=== PATIENT | female | born 1955 | race Caucasian/White ===

== ENCOUNTER → 2017-04-09 | Day surgery (SDC) | payer OTHER ==
[~2017-04-09] MED LIST: 'PARAFON FORTE500 M1 PO; ACETAMINOPHEN-H1 TA2 PO; AMLODIPINE5 MG PO; AMOXICILLIN500 MG PO; ATENOLOL25 MG PO; AUGMENTIN 875 M1 TAB PO; CARDIZEM60 MG PO; CLARITIN10 MG PO; COUMADIN4 M1 PO; Coumadin2 MG PO; DAYPRO600 M1 PO; DIGITEK0.25 MG PO; DILTIAZEM30 MG PO; DILTIAZEM60 MG PO; DUONEB 3 MG/3 ML3 M1 NEB; FLEXERIL5 MG PO; FLUCONAZOLE100 MG PO; HYDROCHLOROTHIA25 MG PO; HYDROCODONE BIT1 T11 PO; K-TAB20 MEQ PO; LANOXIN0.25 MG PO; LASIX20 MG PO; LASIX40 MG PO; LEVOFLOXACIN500 MG PO; LISINOPRIL20 MG PO; MACROBID100 M1 PO; MEDROL DOSEPAK4 MG PO; METFORMIN1000 MG PO; METFORMIN500 MG PO; METOPROLOL TART50 M1 PO; MOTRIN800 MG PO; NEURONTIN300 MG PO; NICOTINE T21 MG/24 H T; NORCO 5-325 TA1 EACH PO; POTASSIUM CHLO10 ME4 PO; PRADAXA150 MG PO; PREDNICOT10 MG PO; PREDNICOT20 MG PO; PREDNISONE10 MG PO; PREDNISONE50 MG PO; PROTONIX40 MG PO; PROVENTIL0.09 MG/AC IH; ROBITUSSIN AC 110 ML PO; ROBITUSSIN DM 105 ML PO; SOTALOL HCL80 MG PO; SYMBICORT1 AE1 INH; TESSALON PERLE200 MG PO; TOBREX OPHTH S2.5 ML OPH; VALIUM10 MG PO; VIBRAMYCIN100 MG PO; VICODIN 5/500 505 MG PO; VICODIN 500 MG-1 TAB PO; ZITHROMAX Z PA250 MG PO
--- NOTE | ~2017-04-09 | PROC NOTE ---
[place], [place] PROCEDURE NOTE NAME: ISAURA LOPEZ [facility] #: [id number] UNIT #: [id number] ROOM: DOCTOR: HERMANN MCLAUGHLIN MD BIRTHDATE: [birth year] DOS: 04/09/2017 PREOPERATIVE DIAGNOSIS: Right occipital scalp soft tissue mass. POSTOPERATIVE DIAGNOSIS: Right parieto-occipital scalp sebaceous cyst/epidermal inclusion cyst. PROCEDURE: Excision of right parieto-occipital scalp epidermal inclusion cyst. SURGEON: Hermann Mclaughlin MD. TRADITIONAL [facility] PRACTITIONER: MS4. ANESTHESIA: Local (1% with epinephrine). INDICATIONS: This is a 61-year-old lady with an increasing mass on the scalp in the right parieto-occipital region, who comes in today for the above-mentioned procedure. The procedure and its complications were explained to the patient in detail preoperatively. Complications that were discussed included, but were not limited to, bleeding, infection, abscess formation, hematoma formation, and prolonged pain. She agreed to proceed. DESCRIPTION OF PROCEDURE: After identifying the patient, the patient was brought to the operating suite and laid in the left lateral position. After the parts were painted and draped in the usual sterile fashion, a time-out procedure was called. An incision was marked in an elliptical fashion, and local anesthesia was infiltrated. An incision was made over the marked site, and the cyst was excised in its entirety with the help of blunt and sharp dissection, and it was sent for histopathological diagnosis. Thereafter, hemostasis was confirmed with the help of electrocautery, and the subcutaneous tissue was approximated with the help of 3-0 Vicryl in a running fashion and the skin edges were approximated with the help of a 4-0 Vicryl in a subcuticular running fashion and dressing was placed. The patient tolerated the procedure well and was taken to the recovery room in stable fashion. Dr. Hermann Mclaughlin, the attending surgeon, was present throughout the operating case. Hermann Mclaughlin MD CM:PROCNOTE:PROCEDURE NOTE [id number] HERMANN MCLAUGHLIN MD
[2017-04-09 07:08] VITALS: BP 140/76
[2017-04-09 07:24] VITALS: BP 135/78
[2017-04-09 07:42] VITALS: BP 155/88
[2017-04-09 07:50] VITALS: BP 159/91
[2017-04-09 08:00] VITALS: BP 151/90
== END | disposition home or self-care (01) ==
LOC: SDC 04-06 09:30
DX: L72.0 Epidermal cyst (principal); E11.9 Type 2 diabetes mellitus without complications; I48.91 Unspecified atrial fibrillation; B19.20 Unspecified viral hepatitis C without hepatic coma; I10 Essential (primary) hypertension; J44.9 Chronic obstructive pulmonary disease, unspecified; F17.210 Nicotine dependence, cigarettes, uncomplicated; Z98.890 Other specified postprocedural states

== ENCOUNTER → 2017-05-06 | Outpatient (CLI) | payer OTHER | END | disposition home or self-care (01) | LOC: US 05-05 11:00 | DX: I73.9 Peripheral vascular disease, unspecified (principal); L97.321 Non-pressure chronic ulcer of left ankle limited to breakdown of skin; I49.8 Other specified cardiac arrhythmias ==

== ENCOUNTER → 2017-05-20 | Outpatient (CLI) | payer OTHER | END | disposition home or self-care (01) | LOC: MRI 09:41 | DX: M47.816 Spondylosis without myelopathy or radiculopathy, lumbar region (principal); M48.06 Spinal stenosis, lumbar region; M48.56XD Collapsed vertebra, not elsewhere classified, lumbar region, subsequent encounter for fracture with routine healing; Z98.890 Other specified postprocedural states ==

== ENCOUNTER 2017-07-22 15:18 | Inpatient (IN) | payer OTHER ==
[~2017-07-22] VITALS: Ht 170.2 cm; Wt 86.7 kg
[~2017-07-22 15:18] MED LIST changes: -NATURE'S BLEND F1 MG PO; -Oscal,Oyster S500 MG PO; -ULTRAM50 MG PO; -Vitamin D PO
[2017-07-22 15:32] VITALS: BP 122/99
[2017-07-22 16:31] LABS: BUN 9 mg/dl (7-24); CHLORIDE 98 mmol/L (98-107); POTASSIUM 3.5 mmol/L (3.5-5.1); SODIUM 138 mmol/L (136-145)
[2017-07-22 16:36] LABS: ACT PARTIAL THROMBO TIME 37.2 SECONDS (20.8-31.5); INTERNATIONAL NORM RATIO 1.4 (2.0-3.5)
[2017-07-22 16:37] LABS: MAGNESIUM 0.9 mg/dL (1.5-2.1)
[2017-07-22 16:51] LABS: DIGOXIN 1.69 ng/ml (0.8-2.0)
[2017-07-22 18:00] VITALS: BP 142/78
[2017-07-22 20:00] VITALS: BP 122/80
[2017-07-22 20:21] LABS: ALBUMIN 2.5 gm/dl (3.1-4.5); ALKALINE PHOSPHATASE 216 U/L (45-117); BUN 8 mg/dl (7-24); CHLORIDE 96 mmol/L (98-107); CREATININE 1.17 mg/dL (0.55-1.02); MAGNESIUM 1.4 mg/dL (1.5-2.1); PHOSPHOROUS 3.5 mg/dL (2.5-4.9); POTASSIUM 3.3 mmol/L (3.5-5.1); SGOT/AST 54 IU/L (3-35); SGPT/ALT 25 U/L (12-78); SODIUM 139 mmol/L (136-145); TOTAL PROTEIN 7.1 gm/dL (6.4-8.2)
[2017-07-22 20:26] LABS: TROPONIN I < 0.015 ng/ml (<0.045)
[2017-07-22 21:08] LABS: VITAMIN D, 25-HYDROXY 9.1 ng/mL (30-100)
[2017-07-23] VITALS: BP 111/56
[2017-07-23 06:23] LABS: BASO # 0.1 10*3/uL (0.0-0.1); BASO % 0.8 % (0.0-1.0); EOS # 0.2 10*3/uL (0.0-0.4); EOS % 2.6 % (1.0-4.0); HEMATOCRIT 32.6 % (37.0-47.0); HEMOGLOBIN 11.2 g/dl (12.0-16.0); LYMPH % 12.8 % (27.0-41.0); MEAN CELL VOLUME 106.5 fl (81.0-99.0); MEAN CORPUSCULAR HGB 36.6 pg (27.0-31.0); MEAN CORPUSCULAR HGB CONC 34.4 g/dl (33.0-37.0); MEAN PLATELET VOLUME 9.6 fl (9.6-12.3); MONO # 0.6 10*3/uL (0.1-1.0); MONO % 8.6 % (3.0-9.0); NEUT # 5.5 10*3/uL (2.3-7.9); NEUT % 74.8 % (47.0-73.0); PLATELET COUNT AUTOMATED 195 10*3/uL (130-400); RED BLOOD COUNT 3.06 10*6/uL (4.10-5.10); RED CELL DISTRI WIDTH 15.6 % (0-14.5); WHITE BLOOD COUNT 7.4 10*3/uL (4.8-10.8)
[2017-07-23 06:37] LABS: INTERNATIONAL NORM RATIO 1.3 (2.0-3.5)
[2017-07-23 06:41] LABS: ALBUMIN 2.3 gm/dl (3.1-4.5); BUN 10 mg/dl (7-24); CHLORIDE 98 mmol/L (98-107); MAGNESIUM 1.4 mg/dL (1.5-2.1); POTASSIUM 3.5 mmol/L (3.5-5.1); SODIUM 140 mmol/L (136-145)
[2017-07-23 06:45] LABS: ALKALINE PHOSPHATASE 194 U/L (45-117); CREATININE 1.02 mg/dL (0.55-1.02); PHOSPHOROUS 3.1 mg/dL (2.5-4.9); SGOT/AST 52 IU/L (3-35); SGPT/ALT 21 U/L (12-78); TOTAL PROTEIN 6.6 gm/dL (6.4-8.2)
[2017-07-23 08:00] VITALS: BP 102/50
[2017-07-23 12:00] VITALS: BP 115/77
[2017-07-23] MEDS ORDERED: Vitamin D PO (13:48)
[2017-07-23] MEDS ORDERED: ULTRAM50 MG PO (13:48)
[2017-07-23] MEDS ORDERED: NATURE'S BLEND F1 MG PO (13:48)
[2017-07-23] MEDS ORDERED: Oscal,Oyster S500 MG PO (13:48)
== END 2017-07-23 15:15 | disposition home or self-care (01) | DRG 640 ==
LOC: ED 15:18 → EDHOLD 16:54 → 5E 16:54
PROVIDERS: Emergency Medicine; Internal Medicine Hospice and Palliative Medicine; ADMIT Internal Medicine
DX: E83.51 Hypocalcemia (principal); E43 Unspecified severe protein-calorie malnutrition; E11.42 Type 2 diabetes mellitus with diabetic polyneuropathy; I50.22 Chronic systolic (congestive) heart failure; I11.0 Hypertensive heart disease with heart failure; I48.2 Chronic atrial fibrillation; E83.42 Hypomagnesemia; E11.65 Type 2 diabetes mellitus with hyperglycemia; J44.9 Chronic obstructive pulmonary disease, unspecified; K70.30 Alcoholic cirrhosis of liver without ascites; E80.6 Other disorders of bilirubin metabolism; D75.89 Other specified diseases of blood and blood-forming organs; F10.120 Alcohol abuse with intoxication, uncomplicated; K21.9 Gastro-esophageal reflux disease without esophagitis; B19.20 Unspecified viral hepatitis C without hepatic coma; R74.0 Nonspecific elevation of levels of transaminase and lactic acid dehydrogenase [LDH]; D72.810 Lymphocytopenia; F17.210 Nicotine dependence, cigarettes, uncomplicated; E66.9 Obesity, unspecified; Z68.29 Body mass index [BMI] 29.0-29.9, adult; Z71.6 Tobacco abuse counseling; Z71.41 Alcohol abuse counseling and surveillance of alcoholic; Z79.84 Long term (current) use of oral hypoglycemic drugs; Z79.899 Other long term (current) drug therapy; Z82.49 Family history of ischemic heart disease and other diseases of the circulatory system; Z83.3 Family history of diabetes mellitus; Z82.3 Family history of stroke

== ENCOUNTER → 2017-07-22 | Outpatient (CLI) | payer OTHER ==
[~2017-07-22] MED LIST changes: +NATURE'S BLEND F1 MG PO; +Oscal,Oyster S500 MG PO; +ULTRAM50 MG PO; +Vitamin D PO
[2017-07-22 13:29] LABS: BASO # 0.1 10*3/uL (0.0-0.1); BASO % 0.7 % (0.0-1.0); EOS # 0.2 10*3/uL (0.0-0.4); EOS % 2.1 % (1.0-4.0); HEMATOCRIT 34.7 % (37.0-47.0); HEMOGLOBIN 12.2 g/dl (12.0-16.0); LYMPH # 0.9 10*3/uL (1.3-4.4); LYMPH % 10.4 % (27.0-41.0); MEAN CELL VOLUME 105.8 fl (81.0-99.0); MEAN CORPUSCULAR HGB 37.2 pg (27.0-31.0); MEAN CORPUSCULAR HGB CONC 35.2 g/dl (33.0-37.0); MEAN PLATELET VOLUME 9.4 fl (9.6-12.3); MONO # 0.8 10*3/uL (0.1-1.0); MONO % 9.1 % (3.0-9.0); NEUT % 77.3 % (47.0-73.0); PLATELET COUNT AUTOMATED 221 10*3/uL (130-400); RED BLOOD COUNT 3.28 10*6/uL (4.10-5.10); RED CELL DISTRI WIDTH 15.4 % (0-14.5)
[2017-07-22 13:58] LABS: ALBUMIN 2.6 gm/dl (3.1-4.5); ALKALINE PHOSPHATASE 224 U/L (45-117); BUN 8 mg/dl (7-24); CHLORIDE 96 mmol/L (98-107); CHOLESTEROL 107 mg/dL (<200); CREATININE 0.96 mg/dL (0.55-1.02); GAMMA GLUTAMYL TRANSPEPTIDASE 337 U/L (5-55); HDL CHOLESTEROL 23 mg/dl (40-60); LDL CHOLESTEROL 56 mg/dL (9-159); POTASSIUM 3.7 mmol/L (3.5-5.1); SGOT/AST 61 IU/L (3-35); SGPT/ALT 25 U/L (12-78); SODIUM 140 mmol/L (136-145); TOTAL PROTEIN 7.2 gm/dL (6.4-8.2); TRIGLYCERIDES 141 mg/dl (<150); VLDL CHOLESTEROL 28 mg/dL (6-40)
== END | disposition home or self-care (01) ==
LOC: MAMMO 07-14 14:00 → LAB 13:06
PROVIDERS: Family Medicine
DX: Z12.31 Encounter for screening mammogram for malignant neoplasm of breast (principal); I10 Essential (primary) hypertension; E11.9 Type 2 diabetes mellitus without complications; I48.2 Chronic atrial fibrillation; R06.2 Wheezing; J44.9 Chronic obstructive pulmonary disease, unspecified; R06.02 Shortness of breath; Z72.0 Tobacco use

== ENCOUNTER → 2017-07-24 | Outpatient (CLI) | payer OTHER ==
[~2017-07-24] MED LIST changes: +NATURE'S BLEND F1 MG PO; +Oscal,Oyster S500 MG PO; +ULTRAM50 MG PO; +Vitamin D PO
== END | disposition home or self-care (01) ==
LOC: ORTHO 03:11
DX: M17.11 Unilateral primary osteoarthritis, right knee (principal); M25.461 Effusion, right knee

== ENCOUNTER → 2017-08-12 | Outpatient (CLI) | payer OTHER ==
[2017-08-12 09:53] LABS: ALBUMIN 2.5 gm/dl (3.1-4.5); ALKALINE PHOSPHATASE 226 U/L (45-117); BUN 8 mg/dl (7-24); CHLORIDE 93 mmol/L (98-107); CREATININE 0.95 mg/dL (0.55-1.02); POTASSIUM 3.8 mmol/L (3.5-5.1); SGOT/AST 37 IU/L (3-35); SGPT/ALT 19 U/L (12-78); SODIUM 135 mmol/L (136-145); TOTAL PROTEIN 7.5 gm/dL (6.4-8.2)
[2017-08-13 07:06] LABS: HEPATITIS B SURFACE AB 006395 Non Reactive (.); HEPATITIS B SURFACE AG Negative (Negative)
== END | disposition home or self-care (01) ==
LOC: MAMMO 09:00 → LAB 09:02 → MAMMO 09:30
PROVIDERS: Family Medicine
DX: N63 Unspecified lump in breast (principal); I48.2 Chronic atrial fibrillation; B18.2 Chronic viral hepatitis C; E83.51 Hypocalcemia; I10 Essential (primary) hypertension; K74.60 Unspecified cirrhosis of liver; E83.42 Hypomagnesemia

== ENCOUNTER 2017-10-05 12:02 | Emergency (ER) | payer OTHER ==
[~2017-10-05] VITALS: Ht 170.1 cm; Wt 81.6 kg
[2017-10-05 12:55] LABS: BASO # 0.1 10*3/uL (0.0-0.1); BASO % 0.7 % (0.0-1.0); EOS # 0.2 10*3/uL (0.0-0.4); HEMATOCRIT 37.9 % (37.0-47.0); LYMPH # 0.8 10*3/uL (1.3-4.4); LYMPH % 9.2 % (27.0-41.0); MEAN CELL VOLUME 99.2 fl (81.0-99.0); MEAN CORPUSCULAR HGB CONC 34.3 g/dl (33.0-37.0); MEAN PLATELET VOLUME 11.2 fl (9.6-12.3); MONO # 0.9 10*3/uL (0.1-1.0); NEUT % 77.7 % (47.0-73.0); NUCLEATED RED BLOOD CELL 0.2 % (0.0-0.0); PLATELET COUNT AUTOMATED 190 10*3/uL (130-400); RED BLOOD COUNT 3.82 10*6/uL (4.10-5.10); RED CELL DISTRI WIDTH 17.8 % (0-14.5)
[2017-10-05 13:27] LABS: ALBUMIN 2.6 gm/dl (3.1-4.5); CREATININE 1.16 mg/dL (0.55-1.02); POTASSIUM 4.1 mmol/L (3.5-5.1); TOTAL PROTEIN 7.1 gm/dL (6.4-8.2)
[2017-10-05 14:23] VITALS: BP 137/99
[2017-10-05] MEDS ORDERED: ZOFRAN ODT4 MG SL (14:50)
[2017-10-05 14:53] LABS: BILIRUBIN 1+ (NEGATIVE); BLOOD TRACE-LYSED (NEGATIVE); CLARITY SL CLOUDY (CLEAR); COLOR YELLOW (YELLOW); GLUCOSE NEGATIVE (NEGATIVE); KETONE TRACE (NEGATIVE); LEUKO ESTERASE TRACE (NEGATIVE); NITRITE NEGATIVE (NEGATIVE); SPECIFIC GRAVITY <= 1.005 (1.005-1.030)
[2017-10-05 15:35] LABS: BACTERIA 4+; EPITHELIAL CELLS 21-30
== END 2017-10-05 15:41 | disposition home or self-care (01) ==
LOC: ED 12:02
PROVIDERS: Nurse Practitioner Family
DX: B34.9 Viral infection, unspecified (principal); F17.210 Nicotine dependence, cigarettes, uncomplicated; F10.10 Alcohol abuse, uncomplicated; Z79.84 Long term (current) use of oral hypoglycemic drugs; Z79.899 Other long term (current) drug therapy

== ENCOUNTER 2017-11-17 19:17 | Emergency (ER) | payer OTHER ==
[~2017-11-17] VITALS: Ht 170.1 cm; Wt 90.7 kg
[~2017-11-17 19:17] MED LIST changes: +ZOFRAN ODT4 MG SL
[2017-11-17 19:47] LABS: BASO # 0.1 10*3/uL (0.0-0.1); BASO % 0.8 % (0.0-1.0); EOS # 0.2 10*3/uL (0.0-0.4); EOS % 3.8 % (1.0-4.0); HEMATOCRIT 30.9 % (37.0-47.0); HEMOGLOBIN 10.3 g/dl (12.0-16.0); LYMPH # 0.9 10*3/uL (1.3-4.4); LYMPH % 14.1 % (27.0-41.0); MEAN CELL VOLUME 104.4 fl (81.0-99.0); MEAN CORPUSCULAR HGB 34.8 pg (27.0-31.0); MEAN CORPUSCULAR HGB CONC 33.3 g/dl (33.0-37.0); MEAN PLATELET VOLUME 8.8 fl (9.6-12.3); MONO # 0.6 10*3/uL (0.1-1.0); MONO % 9.4 % (3.0-9.0); NEUT # 4.5 10*3/uL (2.3-7.9); NEUT % 71.6 % (47.0-73.0); PLATELET COUNT AUTOMATED 208 10*3/uL (130-400); RED BLOOD COUNT 2.96 10*6/uL (4.10-5.10); RED CELL DISTRI WIDTH 16.6 % (0-14.5); WHITE BLOOD COUNT 6.3 10*3/uL (4.8-10.8)
[2017-11-17 19:57] LABS: ACT PARTIAL THROMBO TIME 38.7 SECONDS (20.8-31.5); INTERNATIONAL NORM RATIO 1.3 (2.0-3.5)
[2017-11-17 20:05] LABS: ALBUMIN 2.4 gm/dl (3.1-4.5); ALKALINE PHOSPHATASE 236 U/L (45-117); BUN 9 mg/dl (7-24); CHLORIDE 104 mmol/L (98-107); CREATININE 0.72 mg/dL (0.55-1.02); POTASSIUM 4.1 mmol/L (3.5-5.1); SGOT/AST 45 IU/L (3-35); SGPT/ALT 22 U/L (12-78); SODIUM 142 mmol/L (136-145); TOTAL PROTEIN 6.8 gm/dL (6.4-8.2); TROPONIN I < 0.015 ng/ml (<0.045)
[2017-11-17 21:03] VITALS: BP 139/84
== END 2017-11-17 21:48 | disposition home or self-care (01) ==
LOC: ED 19:17
PROVIDERS: Student in an Organized Health Care Education/Training Program
DX: R60.0 Localized edema (principal); F17.200 Nicotine dependence, unspecified, uncomplicated; I11.0 Hypertensive heart disease with heart failure; I50.9 Heart failure, unspecified; I48.91 Unspecified atrial fibrillation; J44.9 Chronic obstructive pulmonary disease, unspecified; K21.9 Gastro-esophageal reflux disease without esophagitis; E66.9 Obesity, unspecified; E11.65 Type 2 diabetes mellitus with hyperglycemia; Z98.890 Other specified postprocedural states; Z98.51 Tubal ligation status; Z79.899 Other long term (current) drug therapy

== ENCOUNTER 2017-12-01 14:25 | Inpatient (IN) | payer OTHER ==
[~2017-12-01] VITALS: Ht 170.1 cm; Wt 87.2 kg
[~2017-12-01 14:25] MED LIST changes: +SYMB160 INH; -SYMBICORT1 AE1 INH
[2017-12-01 14:43] VITALS: BP 113/79
[2017-12-01 15:40] LABS: BASO # 0.1 10*3/uL (0.0-0.1); BASO % 0.9 % (0.0-1.0); EOS # 0.1 10*3/uL (0.0-0.4); EOS % 2.1 % (1.0-4.0); HEMATOCRIT 32.9 % (37.0-47.0); HEMOGLOBIN 11.1 g/dl (12.0-16.0); LYMPH # 0.7 10*3/uL (1.3-4.4); LYMPH % 10.5 % (27.0-41.0); MEAN CELL VOLUME 103.8 fl (81.0-99.0); MEAN CORPUSCULAR HGB CONC 33.7 g/dl (33.0-37.0); MEAN PLATELET VOLUME 9.5 fl (9.6-12.3); MONO # 0.6 10*3/uL (0.1-1.0); MONO % 9.6 % (3.0-9.0); NEUT % 76.6 % (47.0-73.0); PLATELET COUNT AUTOMATED 167 10*3/uL (130-400); RED BLOOD COUNT 3.17 10*6/uL (4.10-5.10); RED CELL DISTRI WIDTH 16.6 % (0-14.5); WHITE BLOOD COUNT 6.6 10*3/uL (4.8-10.8)
[2017-12-01 15:50] LABS: INTERNATIONAL NORM RATIO 1.5 (2.0-3.5)
[2017-12-01 15:57] LABS: ALBUMIN 2.6 gm/dl (3.1-4.5); BUN 11 mg/dl (7-24); CHLORIDE 97 mmol/L (98-107); CREATININE 0.79 mg/dL (0.55-1.02); LIPASE 110 U/L (73-393); POTASSIUM 3.4 mmol/L (3.5-5.1); SGOT/AST 59 IU/L (3-35); SGPT/ALT 23 U/L (12-78); SODIUM 140 mmol/L (136-145)
[2017-12-01 16:00] VITALS: BP 120/70
[2017-12-01 16:01] LABS: ALKALINE PHOSPHATASE 298 U/L (45-117)
[2017-12-01 16:11] LABS: TROPONIN I < 0.015 ng/ml (<0.045)
[2017-12-01 18:00] VITALS: BP 124/64; BP 126/76
[2017-12-01 18:10] VITALS: BP 126/76
[2017-12-01] MEDS ORDERED: CYMBALTA30 MG PO (18:42)
[2017-12-01] MEDS ORDERED: VITAMIN B150 MG PO (18:42)
[2017-12-01 20:00] VITALS: BP 112/72
[2017-12-01 21:53] LABS: BILIRUBIN NEGATIVE (NEGATIVE); BLOOD TRACE-LYSED (NEGATIVE); CLARITY SL CLOUDY (CLEAR); COLOR YELLOW (YELLOW); GLUCOSE NEGATIVE (NEGATIVE); KETONE NEGATIVE (NEGATIVE); LEUKO ESTERASE TRACE (NEGATIVE); NITRITE NEGATIVE (NEGATIVE); PH 5.5 (5.0-9.0); UROBILINOGEN 0.2 E.U./dl (0.2-1.0)
[2017-12-01 22:23] LABS: BACTERIA 3+; WBC 31-40 wbc/hpf (0-5)
[2017-12-02] VITALS: BP 121/65
[2017-12-02 07:46] LABS: HEMATOCRIT 29.6 % (37.0-47.0); HEMOGLOBIN 10.2 g/dl (12.0-16.0); LYMPH # 0.3 10*3/uL (1.3-4.4); LYMPH % 6.5 % (27.0-41.0); MEAN CELL VOLUME 104.2 fl (81.0-99.0); MEAN CORPUSCULAR HGB 35.9 pg (27.0-31.0); MEAN CORPUSCULAR HGB CONC 34.5 g/dl (33.0-37.0); MONO # 0.2 10*3/uL (0.1-1.0); MONO % 4.7 % (3.0-9.0); NEUT % 88.1 % (47.0-73.0); PLATELET COUNT AUTOMATED 141 10*3/uL (130-400); RED BLOOD COUNT 2.84 10*6/uL (4.10-5.10); RED CELL DISTRI WIDTH 16.5 % (0-14.5); WHITE BLOOD COUNT 4.5 10*3/uL (4.8-10.8)
[2017-12-02 08:06] LABS: ALBUMIN 2.4 gm/dl (3.1-4.5); ALKALINE PHOSPHATASE 285 U/L (45-117); BUN 14 mg/dl (7-24); CHLORIDE 94 mmol/L (98-107); CREATININE 0.86 mg/dL (0.55-1.02); PHOSPHOROUS 3.9 mg/dL (2.5-4.9); POTASSIUM 3.8 mmol/L (3.5-5.1); SGOT/AST 46 IU/L (3-35); SGPT/ALT 21 U/L (12-78); SODIUM 135 mmol/L (136-145); TOTAL PROTEIN 6.9 gm/dL (6.4-8.2)
[2017-12-02 08:34] LABS: ACT PARTIAL THROMBO TIME 41.1 SECONDS (19.5-32.1); INTERNATIONAL NORM RATIO 1.4 (2.0-3.5)
[2017-12-02 09:00] VITALS: BP 100/58
[2017-12-02 12:00] VITALS: BP 113/90
[2017-12-02 16:00] VITALS: BP 121/88
[2017-12-02 20:00] VITALS: BP 117/81
[2017-12-03] VITALS: BP 110/89
[2017-12-03 07:39] LABS: BASO % 0.1 % (0.0-1.0); HEMOGLOBIN 10.2 g/dl (12.0-16.0); LYMPH # 0.4 10*3/uL (1.3-4.4); LYMPH % 6.1 % (27.0-41.0); MEAN CELL VOLUME 105.3 fl (81.0-99.0); MEAN CORPUSCULAR HGB 35.8 pg (27.0-31.0); MONO # 0.5 10*3/uL (0.1-1.0); MONO % 7.1 % (3.0-9.0); NEUT # 5.9 10*3/uL (2.3-7.9); NEUT % 86.1 % (47.0-73.0); NUCLEATED RED BLOOD CELL 0.4 % (0.0-0.0); PLATELET COUNT AUTOMATED 152 10*3/uL (130-400); RED BLOOD COUNT 2.85 10*6/uL (4.10-5.10); RED CELL DISTRI WIDTH 16.8 % (0-14.5); WHITE BLOOD COUNT 6.9 10*3/uL (4.8-10.8)
[2017-12-03 08:00] VITALS: BP 128/90
[2017-12-03 08:14] LABS: ALBUMIN 2.5 gm/dl (3.1-4.5); BUN 17 mg/dl (7-24); CHLORIDE 94 mmol/L (98-107); POTASSIUM 4.3 mmol/L (3.5-5.1); SGOT/AST 51 IU/L (3-35); SGPT/ALT 25 U/L (12-78); SODIUM 135 mmol/L (136-145)
[2017-12-03 08:15] LABS: ALKALINE PHOSPHATASE 260 U/L (45-117); TOTAL PROTEIN 7.1 gm/dL (6.4-8.2)
[2017-12-03 12:00] VITALS: BP 126/87
[2017-12-03 16:00] VITALS: BP 119/80
[2017-12-03 20:00] VITALS: BP 123/90
[2017-12-04] VITALS: BP 136/91
[2017-12-04 06:09] LABS: BUN 18 mg/dl (7-24); CHLORIDE 94 mmol/L (98-107); CREATININE 1.09 mg/dL (0.55-1.02); SODIUM 136 mmol/L (136-145)
[2017-12-04 06:10] LABS: POTASSIUM 3.2 mmol/L (3.5-5.1)
[2017-12-04 06:13] LABS: EOS % 0.2 % (1.0-4.0); HEMATOCRIT 28.2 % (37.0-47.0); HEMOGLOBIN 9.7 g/dl (12.0-16.0); LYMPH # 0.5 10*3/uL (1.3-4.4); LYMPH % 8.3 % (27.0-41.0); MEAN CELL VOLUME 105.2 fl (81.0-99.0); MEAN CORPUSCULAR HGB 36.2 pg (27.0-31.0); MEAN CORPUSCULAR HGB CONC 34.4 g/dl (33.0-37.0); MONO # 0.6 10*3/uL (0.1-1.0); MONO % 9.7 % (3.0-9.0); NEUT # 5.2 10*3/uL (2.3-7.9); NEUT % 81.3 % (47.0-73.0); PLATELET COUNT AUTOMATED 126 10*3/uL (130-400); RED BLOOD COUNT 2.68 10*6/uL (4.10-5.10); RED CELL DISTRI WIDTH 16.5 % (0-14.5); WHITE BLOOD COUNT 6.4 10*3/uL (4.8-10.8)
[2017-12-04 07:49] VITALS: BP 123/86
[2017-12-04] MEDS ORDERED: LASIX40 MG PO (10:21)
[2017-12-04] MEDS ORDERED: DIGITEK250 MCG PO (10:29)
[2017-12-04 12:00] VITALS: BP 130/94
[2017-12-04 16:00] VITALS: BP 101/74
[2017-12-04 20:00] VITALS: BP 129/89
[2017-12-05] VITALS: BP 122/83
[2017-12-05 07:58] LABS: BASO % 0.2 % (0.0-1.0); EOS # 0.1 10*3/uL (0.0-0.4); EOS % 2.1 % (1.0-4.0); HEMATOCRIT 32.6 % (37.0-47.0); HEMOGLOBIN 11.2 g/dl (12.0-16.0); LYMPH # 0.7 10*3/uL (1.3-4.4); MEAN CELL VOLUME 105.8 fl (81.0-99.0); MEAN CORPUSCULAR HGB 36.4 pg (27.0-31.0); MEAN CORPUSCULAR HGB CONC 34.4 g/dl (33.0-37.0); MEAN PLATELET VOLUME 9.7 fl (9.6-12.3); MONO # 0.6 10*3/uL (0.1-1.0); MONO % 11.5 % (3.0-9.0); NEUT # 3.7 10*3/uL (2.3-7.9); NEUT % 71.8 % (47.0-73.0); PLATELET COUNT AUTOMATED 138 10*3/uL (130-400); RED BLOOD COUNT 3.08 10*6/uL (4.10-5.10); RED CELL DISTRI WIDTH 16.4 % (0-14.5); WHITE BLOOD COUNT 5.1 10*3/uL (4.8-10.8)
[2017-12-05 08:00] VITALS: BP 100/60
[2017-12-05 08:22] LABS: BUN 19 mg/dl (7-24); CHLORIDE 92 mmol/L (98-107); CREATININE 1.03 mg/dL (0.55-1.02); POTASSIUM 2.9 mmol/L (3.5-5.1); SODIUM 137 mmol/L (136-145)
[2017-12-05 08:33] LABS: DIGOXIN 0.59 ng/ml (0.8-2.0)
[2017-12-05 12:00] VITALS: BP 100/58
[2017-12-05 16:00] VITALS: BP 126/76
[2017-12-05 17:09] LABS: CREATININE 1.18 mg/dL (0.55-1.02); POTASSIUM 3.6 mmol/L (3.5-5.1)
[2017-12-05 20:00] VITALS: BP 97/58
[2017-12-05 20:25] VITALS: BP 112/56
[2017-12-06] VITALS: BP 118/83
[2017-12-06 07:57] LABS: BUN 18 mg/dl (7-24); CHLORIDE 91 mmol/L (98-107); POTASSIUM 3.1 mmol/L (3.5-5.1); SODIUM 138 mmol/L (136-145)
[2017-12-06 07:59] LABS: CREATININE 1.02 mg/dL (0.55-1.02)
[2017-12-06 08:00] VITALS: BP 139/80
[2017-12-06] MEDS ORDERED: DIGITEK250 MCG PO (11:38)
[2017-12-06] MEDS ORDERED: VITAMIN B150 MG PO (11:38)
[2017-12-06] MEDS ORDERED: Zaroxolyn,Diul2.5 MG PO (11:38)
[2017-12-06] MEDS ORDERED: PRADAXA150 MG PO (11:38)
[2017-12-06] MEDS ORDERED: PROTONIX40 MG PO (11:38)
[2017-12-06 12:00] VITALS: BP 127/86
== END 2017-12-06 13:30 | disposition home or self-care (01) | DRG 291 ==
LOC: ED 14:25 → EDHOLD 17:07 → 4E 17:07
PROVIDERS: Emergency Medicine; Family Medicine; Physician Assistant; Student in an Organized Health Care Education/Training Program
DX: I11.0 Hypertensive heart disease with heart failure (principal); E43 Unspecified severe protein-calorie malnutrition; D68.9 Coagulation defect, unspecified; E11.40 Type 2 diabetes mellitus with diabetic neuropathy, unspecified; E87.2 Acidosis; E83.42 Hypomagnesemia; E11.65 Type 2 diabetes mellitus with hyperglycemia; I42.9 Cardiomyopathy, unspecified; J44.1 Chronic obstructive pulmonary disease with (acute) exacerbation; N39.0 Urinary tract infection, site not specified; I50.43 Acute on chronic combined systolic (congestive) and diastolic (congestive) heart failure; K70.30 Alcoholic cirrhosis of liver without ascites; E87.6 Hypokalemia; E66.9 Obesity, unspecified; B18.2 Chronic viral hepatitis C; K21.9 Gastro-esophageal reflux disease without esophagitis; Z96.651 Presence of right artificial knee joint; F17.210 Nicotine dependence, cigarettes, uncomplicated; R74.0 Nonspecific elevation of levels of transaminase and lactic acid dehydrogenase [LDH]; F10.10 Alcohol abuse, uncomplicated; M43.9 Deforming dorsopathy, unspecified; I48.2 Chronic atrial fibrillation; E80.6 Other disorders of bilirubin metabolism; D53.9 Nutritional anemia, unspecified; Z91.14 Patient's other noncompliance with medication regimen; Z82.3 Family history of stroke; Z83.3 Family history of diabetes mellitus; Z90.49 Acquired absence of other specified parts of digestive tract; Z79.899 Other long term (current) drug therapy; Z68.31 Body mass index [BMI] 31.0-31.9, adult; Z82.49 Family history of ischemic heart disease and other diseases of the circulatory system; Z71.6 Tobacco abuse counseling; Z79.4 Long term (current) use of insulin

== ENCOUNTER → 2018-01-21 | Outpatient (CLI) | payer OTHER ==
[~2018-01-21] MED LIST changes: +CYMBALTA30 MG PO; +DIGITEK250 MCG PO; +DUONEB 3 MG/3 ML3 M1 INH; +VITAMIN B150 MG PO; +Zaroxolyn,Diul2.5 MG PO
[2018-01-21 10:15] LABS: HEMATOCRIT 32.9 % (37.0-47.0); HEMOGLOBIN 11.2 g/dl (12.0-16.0); MEAN CELL VOLUME 101.2 fl (81.0-99.0); MEAN CORPUSCULAR HGB 34.5 pg (27.0-31.0); MEAN PLATELET VOLUME 9.1 fl (9.6-12.3); RED BLOOD COUNT 3.25 10*6/uL (4.10-5.10); WHITE BLOOD COUNT 6.1 10*3/uL (4.8-10.8)
[2018-01-21 10:45] LABS: ALBUMIN 2.4 gm/dl (3.1-4.5); BUN 11 mg/dl (7-24); CHLORIDE 100 mmol/L (98-107); CHOLESTEROL 87 mg/dL (<200); CREATININE 1.02 mg/dL (0.55-1.02); HDL CHOLESTEROL 27 mg/dl (40-60); LDL CHOLESTEROL 31 mg/dL (9-159); POTASSIUM 3.7 mmol/L (3.5-5.1); SGOT/AST 51 IU/L (3-35); SGPT/ALT 24 U/L (12-78); SODIUM 141 mmol/L (136-145); TOTAL PROTEIN 6.6 gm/dL (6.4-8.2); TRIGLYCERIDES 143 mg/dl (<150); VLDL CHOLESTEROL 29 mg/dL (6-40)
[2018-01-21 10:46] LABS: ALKALINE PHOSPHATASE 237 U/L (45-117)
== END | disposition home or self-care (01) ==
LOC: LAB 09:46
PROVIDERS: Registered Nurse Flight
DX: I48.2 Chronic atrial fibrillation (principal); I50.42 Chronic combined systolic (congestive) and diastolic (congestive) heart failure; E83.42 Hypomagnesemia; E11.9 Type 2 diabetes mellitus without complications; E83.51 Hypocalcemia; R60.1 Generalized edema

== ENCOUNTER 2018-01-22 14:21 | Inpatient (IN) | payer OTHER ==
[~2018-01-22] VITALS: Ht 170.1 cm; Wt 87.6 kg
[~2018-01-22 14:21] MED LIST changes: -DUONEB 3 MG/3 ML3 M1 INH
[2018-01-22 14:49] VITALS: BP 113/70
[2018-01-22 15:54] LABS: BASO # 0.1 10*3/uL (0.0-0.1); BASO % 0.9 % (0.0-1.0); EOS # 0.1 10*3/uL (0.0-0.4); EOS % 2.3 % (1.0-4.0); HEMATOCRIT 33.1 % (37.0-47.0); HEMOGLOBIN 11.1 g/dl (12.0-16.0); LYMPH # 0.7 10*3/uL (1.3-4.4); LYMPH % 12.8 % (27.0-41.0); MEAN CELL VOLUME 102.8 fl (81.0-99.0); MEAN CORPUSCULAR HGB 34.5 pg (27.0-31.0); MEAN CORPUSCULAR HGB CONC 33.5 g/dl (33.0-37.0); MEAN PLATELET VOLUME 9.3 fl (9.6-12.3); MONO # 0.7 10*3/uL (0.1-1.0); MONO % 12.6 % (3.0-9.0); NEUT # 3.8 10*3/uL (2.3-7.9); PLATELET COUNT AUTOMATED 180 10*3/uL (130-400); RED BLOOD COUNT 3.22 10*6/uL (4.10-5.10); RED CELL DISTRI WIDTH 17.3 % (0-14.5); WHITE BLOOD COUNT 5.3 10*3/uL (4.8-10.8)
[2018-01-22 15:55] VITALS: BP 116/74
[2018-01-22 16:09] LABS: ACT PARTIAL THROMBO TIME 35.4 SECONDS (20.8-31.5); ALBUMIN 2.4 gm/dl (3.1-4.5); ALKALINE PHOSPHATASE 240 U/L (45-117); BUN 11 mg/dl (7-24); CHLORIDE 98 mmol/L (98-107); CREATININE 0.94 mg/dL (0.55-1.02); INTERNATIONAL NORM RATIO 1.4 (2.0-3.5); LIPASE 91 U/L (73-393); SGOT/AST 63 IU/L (3-35); SGPT/ALT 26 U/L (12-78); SODIUM 139 mmol/L (136-145); TOTAL PROTEIN 6.7 gm/dL (6.4-8.2); TROPONIN I 0.036 ng/ml (<0.045)
[2018-01-22] MEDS ORDERED: DUONEB 3 MG/3 ML3 M1 INH (18:38)
[2018-01-22 18:40] VITALS: BP 134/70
[2018-01-22] MEDS ORDERED: VITAMIN B150 MG PO (18:40)
[2018-01-22] MEDS ORDERED: NATURE'S BLEND F1 MG PO (18:42)
[2018-01-22 20:00] VITALS: BP 121/62
[2018-01-23] VITALS: BP 102/58; BP 96/46
[2018-01-23 06:51] LABS: BASO # 0.1 10*3/uL (0.0-0.1); BASO % 1.2 % (0.0-1.0); EOS # 0.1 10*3/uL (0.0-0.4); EOS % 2.8 % (1.0-4.0); HEMATOCRIT 30.3 % (37.0-47.0); HEMOGLOBIN 10.4 g/dl (12.0-16.0); LYMPH # 0.8 10*3/uL (1.3-4.4); MEAN CELL VOLUME 101.7 fl (81.0-99.0); MEAN CORPUSCULAR HGB 34.9 pg (27.0-31.0); MEAN CORPUSCULAR HGB CONC 34.3 g/dl (33.0-37.0); MEAN PLATELET VOLUME 9.4 fl (9.6-12.3); MONO # 0.7 10*3/uL (0.1-1.0); MONO % 13.4 % (3.0-9.0); NEUT # 3.2 10*3/uL (2.3-7.9); NEUT % 65.2 % (47.0-73.0); NUCLEATED RED BLOOD CELL 0.4 % (0.0-0.0); PLATELET COUNT AUTOMATED 172 10*3/uL (130-400); RED BLOOD COUNT 2.98 10*6/uL (4.10-5.10); RED CELL DISTRI WIDTH 17.5 % (0-14.5); WHITE BLOOD COUNT 4.9 10*3/uL (4.8-10.8)
[2018-01-23 06:57] LABS: ALBUMIN 2.2 gm/dl (3.1-4.5); BUN 9 mg/dl (7-24); CHLORIDE 97 mmol/L (98-107); CREATININE 0.92 mg/dL (0.55-1.02); PHOSPHOROUS 3.4 mg/dL (2.5-4.9); POTASSIUM 3.6 mmol/L (3.5-5.1); SGOT/AST 53 IU/L (3-35); SGPT/ALT 24 U/L (12-78); SODIUM 138 mmol/L (136-145)
[2018-01-23 07:00] LABS: ALKALINE PHOSPHATASE 223 U/L (45-117); TOTAL PROTEIN 6.2 gm/dL (6.4-8.2)
[2018-01-23 08:00] VITALS: BP 111/61
[2018-01-23 12:00] VITALS: BP 112/78
[2018-01-23 16:00] VITALS: BP 113/45
[2018-01-23 20:20] VITALS: BP 109/54
[2018-01-24 00:02] VITALS: BP 124/67
[2018-01-24 07:05] LABS: BASO % 0.8 % (0.0-1.0); EOS # 0.1 10*3/uL (0.0-0.4); EOS % 1.7 % (1.0-4.0); HEMOGLOBIN 9.4 g/dl (12.0-16.0); LYMPH # 0.8 10*3/uL (1.3-4.4); LYMPH % 14.6 % (27.0-41.0); MEAN CELL VOLUME 101.8 fl (81.0-99.0); MEAN CORPUSCULAR HGB 34.2 pg (27.0-31.0); MEAN CORPUSCULAR HGB CONC 33.6 g/dl (33.0-37.0); MEAN PLATELET VOLUME 9.2 fl (9.6-12.3); MONO # 0.7 10*3/uL (0.1-1.0); NEUT # 3.7 10*3/uL (2.3-7.9); NEUT % 69.5 % (47.0-73.0); PLATELET COUNT AUTOMATED 139 10*3/uL (130-400); RED BLOOD COUNT 2.75 10*6/uL (4.10-5.10); RED CELL DISTRI WIDTH 17.4 % (0-14.5); WHITE BLOOD COUNT 5.3 10*3/uL (4.8-10.8)
[2018-01-24 07:15] LABS: BUN 10 mg/dl (7-24); CHLORIDE 97 mmol/L (98-107); POTASSIUM 3.5 mmol/L (3.5-5.1); SODIUM 136 mmol/L (136-145)
[2018-01-24 07:17] LABS: CREATININE 0.75 mg/dL (0.55-1.02)
[2018-01-24 08:00] VITALS: BP 120/84; BP 120/87
[2018-01-24 12:00] VITALS: BP 121/69
[2018-01-24] MEDS ORDERED: HYDROCODONE-AC1 EAC1 PO (13:07)
[2018-01-24] MEDS ORDERED: MAGNESIUM400 M1 PO (13:07)
[2018-01-24] MEDS ORDERED: GLIPIZIDE5 MG PO (13:09)
== END 2018-01-24 14:00 | disposition home or self-care (01) | DRG 640 ==
LOC: ED 14:21 → 5E 16:53 → EDHOLD 16:53 → 5E 17:01
PROVIDERS: Internal Medicine; Nurse Practitioner Family
DX: E83.42 Hypomagnesemia (principal); E43 Unspecified severe protein-calorie malnutrition; E11.42 Type 2 diabetes mellitus with diabetic polyneuropathy; E87.2 Acidosis; E11.65 Type 2 diabetes mellitus with hyperglycemia; I48.2 Chronic atrial fibrillation; I50.22 Chronic systolic (congestive) heart failure; I42.9 Cardiomyopathy, unspecified; E83.51 Hypocalcemia; I11.0 Hypertensive heart disease with heart failure; D53.9 Nutritional anemia, unspecified; D72.810 Lymphocytopenia; R74.0 Nonspecific elevation of levels of transaminase and lactic acid dehydrogenase [LDH]; F17.210 Nicotine dependence, cigarettes, uncomplicated; J44.9 Chronic obstructive pulmonary disease, unspecified; K21.9 Gastro-esophageal reflux disease without esophagitis; B18.2 Chronic viral hepatitis C; K70.30 Alcoholic cirrhosis of liver without ascites; Z96.651 Presence of right artificial knee joint; F10.10 Alcohol abuse, uncomplicated; E66.09 Other obesity due to excess calories; Z71.6 Tobacco abuse counseling; Z90.49 Acquired absence of other specified parts of digestive tract; Z79.899 Other long term (current) drug therapy; Z98.51 Tubal ligation status; Z82.49 Family history of ischemic heart disease and other diseases of the circulatory system; Z82.3 Family history of stroke; Z68.30 Body mass index [BMI] 30.0-30.9, adult; Z79.84 Long term (current) use of oral hypoglycemic drugs

== ENCOUNTER 2018-01-26 06:34 | Emergency (ER) | payer OTHER ==
[~2018-01-26] VITALS: Ht 170.1 cm; Wt 90.7 kg
--- NOTE | ~2018-01-26 | EKG ---
[place], [place] ELECTROCARDIOGRAM REPORT NAME: ISAURA LOPEZ UNIT #: [id number] ROOM: DOCTOR: NADIA TALBERT MD BIRTHDATE: [birth year] DOS: 01/26/2018 TIME: 0652 hours. Atrial fibrillation with ventricular rate of 78 beats per minute. Downsloping ST segment depression with T-wave abnormality in V2 to V6 and inferior leads is present and is suggestive of anterolateral inferior wall ischemia; however, digoxin effect should also be considered. Aberrant conduction is noted or it could be PVCs. An abnormal ECG. No previous tracing is available for comparison. NADIA TALBERT MD CM:EKGRPT:ELECTROCARDIOGRAM REPORT [id number] NADIA TALBERT MD
[~2018-01-26 06:34] MED LIST changes: +DUONEB 3 MG/3 ML3 M1 INH; +GLIPIZIDE5 MG PO; +HYDROCODONE-AC1 EAC1 PO; +MAGNESIUM400 M1 PO
[2018-01-26 07:56] LABS: BASO # 0.1 10*3/uL (0.0-0.1); BASO % 0.7 % (0.0-1.0); EOS # 0.1 10*3/uL (0.0-0.4); EOS % 2.1 % (1.0-4.0); HEMATOCRIT 36.4 % (37.0-47.0); HEMOGLOBIN 11.8 g/dl (12.0-16.0); LYMPH # 0.6 10*3/uL (1.3-4.4); MEAN CELL VOLUME 107.4 fl (81.0-99.0); MEAN CORPUSCULAR HGB 34.8 pg (27.0-31.0); MEAN CORPUSCULAR HGB CONC 32.4 g/dl (33.0-37.0); MEAN PLATELET VOLUME 9.3 fl (9.6-12.3); MONO # 0.6 10*3/uL (0.1-1.0); MONO % 9.6 % (3.0-9.0); NEUT # 5.2 10*3/uL (2.3-7.9); NEUT % 78.2 % (47.0-73.0); PLATELET COUNT AUTOMATED 178 10*3/uL (130-400); RED BLOOD COUNT 3.39 10*6/uL (4.10-5.10); RED CELL DISTRI WIDTH 18.4 % (0-14.5); WHITE BLOOD COUNT 6.7 10*3/uL (4.8-10.8)
[2018-01-26 08:11] LABS: ALBUMIN 2.4 gm/dl (3.1-4.5); ALKALINE PHOSPHATASE 247 U/L (45-117); BUN 9 mg/dl (7-24); CHLORIDE 99 mmol/L (98-107); CREATININE 0.97 mg/dL (0.55-1.02); POTASSIUM 3.5 mmol/L (3.5-5.1); SGOT/AST 54 IU/L (3-35); SGPT/ALT 24 U/L (12-78); SODIUM 138 mmol/L (136-145); TOTAL PROTEIN 7.1 gm/dL (6.4-8.2)
[2018-01-26 08:16] LABS: ETHYL ALCOHOL < 3.0 mg/dl (<3)
[2018-01-26 08:36] LABS: BILIRUBIN NEGATIVE (NEGATIVE); BLOOD NEGATIVE (NEGATIVE); CLARITY CLOUDY (CLEAR); COLOR YELLOW (YELLOW); GLUCOSE NEGATIVE (NEGATIVE); KETONE NEGATIVE (NEGATIVE); LEUKO ESTERASE 1+ (NEGATIVE); NITRITE NEGATIVE (NEGATIVE); PH 5.5 (5.0-9.0); SPECIFIC GRAVITY 1.025 (1.005-1.030)
[2018-01-26 08:52] LABS: BACTERIA 3+; WBC TNTC wbc/hpf (0-5)
[2018-01-26 09:01] VITALS: BP 136/79
[2018-01-26] MEDS ORDERED: DIFLUCAN150 MG PO (10:02)
[2018-01-26] MEDS ORDERED: LEVOFLOXACIN500 MG PO (10:02)
== END 2018-01-26 10:36 | disposition home or self-care (01) ==
LOC: ED 06:34
PROVIDERS: Emergency Medicine
DX: N39.0 Urinary tract infection, site not specified (principal); R41.82 Altered mental status, unspecified; I50.9 Heart failure, unspecified; J44.9 Chronic obstructive pulmonary disease, unspecified; I11.0 Hypertensive heart disease with heart failure; I50.22 Chronic systolic (congestive) heart failure; E11.40 Type 2 diabetes mellitus with diabetic neuropathy, unspecified; K21.9 Gastro-esophageal reflux disease without esophagitis; F17.200 Nicotine dependence, unspecified, uncomplicated; Z79.899 Other long term (current) drug therapy

== ENCOUNTER 2018-01-27 19:05 | Emergency (ER) | payer OTHER ==
[~2018-01-27] VITALS: Ht 170.1 cm; Wt 89.8 kg
[~2018-01-27 19:05] MED LIST changes: +DIFLUCAN150 MG PO
[2018-01-27 19:39] LABS: BILIRUBIN NEGATIVE (NEGATIVE); BLOOD NEGATIVE (NEGATIVE); CLARITY CLEAR (CLEAR); COLOR YELLOW (YELLOW); GLUCOSE NEGATIVE (NEGATIVE); KETONE NEGATIVE (NEGATIVE); LEUKO ESTERASE NEGATIVE (NEGATIVE); NITRITE NEGATIVE (NEGATIVE); PH 7.5 (5.0-9.0); UROBILINOGEN 0.2 E.U./dl (0.2-1.0)
[2018-01-27 19:55] LABS: BACTERIA TRACE
[2018-01-27 20:10] VITALS: BP 166/84
== END 2018-01-27 20:10 | disposition home or self-care (01) ==
LOC: ED 19:05
PROVIDERS: Physician Assistant
DX: R33.9 Retention of urine, unspecified (principal); F17.200 Nicotine dependence, unspecified, uncomplicated; Z79.899 Other long term (current) drug therapy

== ENCOUNTER 2018-01-31 12:46 | Emergency (ER) | payer OTHER ==
[~2018-01-31] VITALS: Ht 170.1 cm; Wt 89.8 kg
[2018-01-31 12:55] VITALS: BP 130/91
[2018-01-31 14:01] LABS: BILIRUBIN NEGATIVE (NEGATIVE); BLOOD 3+ (NEGATIVE); CLARITY CLEAR (CLEAR); GLUCOSE NEGATIVE (NEGATIVE); KETONE NEGATIVE (NEGATIVE); LEUKO ESTERASE NEGATIVE (NEGATIVE); NITRITE NEGATIVE (NEGATIVE); PH 5.5 (5.0-9.0); SPECIFIC GRAVITY <= 1.005 (1.005-1.030); UROBILINOGEN 0.2 E.U./dl (0.2-1.0)
[2018-01-31 14:02] LABS: COLOR YELLOW (YELLOW)
[2018-01-31 14:12] LABS: BACTERIA TRACE; RBC 21-30 rbc/hpf (0-2)
== END 2018-01-31 15:11 | disposition home or self-care (01) ==
LOC: ED 12:46
PROVIDERS: Nurse Practitioner
DX: T83.098A Other mechanical complication of other urinary catheter, initial encounter (principal); F17.200 Nicotine dependence, unspecified, uncomplicated; Z90.49 Acquired absence of other specified parts of digestive tract; Z79.899 Other long term (current) drug therapy

== ENCOUNTER 2018-02-03 01:42 | Inpatient (IN) | payer OTHER ==
[~2018-02-03] VITALS: Ht 170.1 cm; Wt 84.1 kg
[2018-02-03] VITALS (8 sets, daily range): BP systolic 110–142; BP diastolic 63–85
[2018-02-03 02:23] LABS: BASO # 0.1 10*3/uL (0.0-0.1); EOS # 0.1 10*3/uL (0.0-0.4); HEMATOCRIT 33.6 % (37.0-47.0); HEMOGLOBIN 10.9 g/dl (12.0-16.0); LYMPH # 0.6 10*3/uL (1.3-4.4); LYMPH % 9.5 % (27.0-41.0); MEAN CELL VOLUME 105.7 fl (81.0-99.0); MEAN CORPUSCULAR HGB 34.3 pg (27.0-31.0); MEAN CORPUSCULAR HGB CONC 32.4 g/dl (33.0-37.0); MEAN PLATELET VOLUME 9.1 fl (9.6-12.3); MONO # 0.7 10*3/uL (0.1-1.0); NEUT # 4.5 10*3/uL (2.3-7.9); PLATELET COUNT AUTOMATED 210 10*3/uL (130-400); RED BLOOD COUNT 3.18 10*6/uL (4.10-5.10); RED CELL DISTRI WIDTH 16.3 % (0-14.5); WHITE BLOOD COUNT 5.9 10*3/uL (4.8-10.8)
[2018-02-03 02:37] LABS: ALBUMIN 2.2 gm/dl (3.1-4.5); ALKALINE PHOSPHATASE 236 U/L (45-117); BUN 7 mg/dl (7-24); CHLORIDE 104 mmol/L (98-107); CREATININE 0.67 mg/dL (0.55-1.02); LIPASE 208 U/L (73-393); POTASSIUM 2.8 mmol/L (3.5-5.1); SGOT/AST 48 IU/L (3-35); SGPT/ALT 22 U/L (12-78); SODIUM 142 mmol/L (136-145); TOTAL PROTEIN 6.8 gm/dL (6.4-8.2)
[2018-02-03] MEDS ORDERED: GLIPIZIDE5 MG PO (02:42)
[2018-02-03 03:05] LABS: BILIRUBIN NEGATIVE (NEGATIVE); BLOOD NEGATIVE (NEGATIVE); CLARITY SL CLOUDY (CLEAR); COLOR YELLOW (YELLOW); GLUCOSE NEGATIVE (NEGATIVE); KETONE NEGATIVE (NEGATIVE); LEUKO ESTERASE 1+ (NEGATIVE); NITRITE NEGATIVE (NEGATIVE); SPECIFIC GRAVITY <= 1.005 (1.005-1.030); UROBILINOGEN 0.2 E.U./dl (0.2-1.0)
[2018-02-03 03:11] LABS: URINE AMPHETAMINES < 1000 (1000ng/ml); URINE BARBITURATES < 200 (200ng/ml); URINE BENZODIAZEPINES < 200 (200ng/ml); URINE CANNABINOIDS (THC) < 50 (50ng/ml); URINE COCAINE < 300 (300ng/ml); URINE METHADONE < 300 (300ng/ml); URINE OPIATES < 300 (300ng/ml); URINE PHENCYCLIDINE < 25 (25ng/ml)
[2018-02-03 03:12] LABS: EPITHELIAL CELLS 45-50
[2018-02-03 03:13] LABS: BACTERIA TRACE
[2018-02-04] VITALS: BP 130/69
[2018-02-04 04:00] VITALS: BP 100/59
[2018-02-04 06:22] LABS: BASO % 0.3 % (0.0-1.0); EOS % 0.6 % (1.0-4.0); HEMOGLOBIN 9.5 g/dl (12.0-16.0); LYMPH # 0.8 10*3/uL (1.3-4.4); MEAN CELL VOLUME 105.8 fl (81.0-99.0); MEAN CORPUSCULAR HGB 34.7 pg (27.0-31.0); MEAN CORPUSCULAR HGB CONC 32.8 g/dl (33.0-37.0); MEAN PLATELET VOLUME 9.7 fl (9.6-12.3); MONO # 0.6 10*3/uL (0.1-1.0); NEUT % 77.8 % (47.0-73.0); PLATELET COUNT AUTOMATED 223 10*3/uL (130-400); RED BLOOD COUNT 2.74 10*6/uL (4.10-5.10); RED CELL DISTRI WIDTH 16.2 % (0-14.5); WHITE BLOOD COUNT 6.4 10*3/uL (4.8-10.8)
[2018-02-04 06:55] LABS: BUN 10 mg/dl (7-24); CHLORIDE 103 mmol/L (98-107); POTASSIUM 3.3 mmol/L (3.5-5.1); SODIUM 141 mmol/L (136-145)
[2018-02-04 07:05] LABS: ALKALINE PHOSPHATASE 207 U/L (45-117); CREATININE 0.79 mg/dL (0.55-1.02); FREE T4 1.42 ng/dl (0.76-1.46); PHOSPHOROUS 3.5 mg/dL (2.5-4.9); SGOT/AST 34 IU/L (3-35); SGPT/ALT 18 U/L (12-78); THYROID STIM HORMONE (HS) 0.411 uIU/ml (0.358-4.75); TOTAL PROTEIN 6.1 gm/dL (6.4-8.2)
[2018-02-04 08:00] VITALS: BP 103/52
[2018-02-04 12:00] VITALS: BP 121/67
[2018-02-04 16:00] VITALS: BP 114/73
[2018-02-04 20:00] VITALS: BP 131/76
[2018-02-05] VITALS: BP 134/84
[2018-02-05 07:06] LABS: BASO # 0.1 10*3/uL (0.0-0.1); BASO % 0.9 % (0.0-1.0); EOS # 0.2 10*3/uL (0.0-0.4); EOS % 3.5 % (1.0-4.0); HEMATOCRIT 29.3 % (37.0-47.0); HEMOGLOBIN 9.5 g/dl (12.0-16.0); LYMPH # 0.9 10*3/uL (1.3-4.4); MEAN CELL VOLUME 107.3 fl (81.0-99.0); MEAN CORPUSCULAR HGB 34.8 pg (27.0-31.0); MEAN CORPUSCULAR HGB CONC 32.4 g/dl (33.0-37.0); MEAN PLATELET VOLUME 9.6 fl (9.6-12.3); MONO # 0.6 10*3/uL (0.1-1.0); MONO % 10.1 % (3.0-9.0); NEUT % 70.2 % (47.0-73.0); PLATELET COUNT AUTOMATED 211 10*3/uL (130-400); RED BLOOD COUNT 2.73 10*6/uL (4.10-5.10); RED CELL DISTRI WIDTH 16.2 % (0-14.5); WHITE BLOOD COUNT 5.7 10*3/uL (4.8-10.8)
[2018-02-05 07:28] LABS: CHLORIDE 105 mmol/L (98-107); POTASSIUM 4.2 mmol/L (3.5-5.1); SODIUM 140 mmol/L (136-145)
[2018-02-05 07:32] LABS: BUN 17 mg/dl (7-24); CREATININE 0.79 mg/dL (0.55-1.02)
[2018-02-05 08:00] VITALS: BP 130/83
[2018-02-05] MEDS ORDERED: LEVOFLOXACIN500 MG PO (08:59)
[2018-02-05] MEDS ORDERED: PREDNISONE10 MG PO (08:59)
[2018-02-05] MEDS ORDERED: K-TAB20 MEQ PO (09:02)
[2018-02-05] MEDS ORDERED: NATURE'S BLEND F1 MG PO (09:03)
[2018-02-05] MEDS ORDERED: NATURE'S BLEND100 M2 PO (09:03)
[2018-02-05] MEDS ORDERED: DUONEB 3 MG/3 ML3 M1 INH (11:09)
== END 2018-02-05 13:01 | disposition home or self-care (01) | DRG 637 ==
LOC: ED 01:42 → EDHOLD 03:11 → 4E 03:11
PROVIDERS: Internal Medicine; Internal Medicine Hospice and Palliative Medicine; Nurse Practitioner Family
DX: E11.649 Type 2 diabetes mellitus with hypoglycemia without coma (principal); E43 Unspecified severe protein-calorie malnutrition; D68.59 Other primary thrombophilia; I50.22 Chronic systolic (congestive) heart failure; E11.40 Type 2 diabetes mellitus with diabetic neuropathy, unspecified; E83.51 Hypocalcemia; I48.0 Paroxysmal atrial fibrillation; J44.1 Chronic obstructive pulmonary disease with (acute) exacerbation; T38.3X5A Adverse effect of insulin and oral hypoglycemic [antidiabetic] drugs, initial encounter; E11.65 Type 2 diabetes mellitus with hyperglycemia; D53.9 Nutritional anemia, unspecified; R74.0 Nonspecific elevation of levels of transaminase and lactic acid dehydrogenase [LDH]; R68.0 Hypothermia, not associated with low environmental temperature; K70.30 Alcoholic cirrhosis of liver without ascites; E87.6 Hypokalemia; B19.20 Unspecified viral hepatitis C without hepatic coma; K21.9 Gastro-esophageal reflux disease without esophagitis; I10 Essential (primary) hypertension; E66.9 Obesity, unspecified; F17.200 Nicotine dependence, unspecified, uncomplicated; Z71.6 Tobacco abuse counseling; Z90.49 Acquired absence of other specified parts of digestive tract; Z96.651 Presence of right artificial knee joint; Z98.51 Tubal ligation status; Z82.49 Family history of ischemic heart disease and other diseases of the circulatory system; Z82.3 Family history of stroke; Z83.3 Family history of diabetes mellitus; Z79.4 Long term (current) use of insulin; Z68.29 Body mass index [BMI] 29.0-29.9, adult; Y92.89 Other specified places as the place of occurrence of the external cause

== ENCOUNTER → 2018-04-07 | Outpatient (CLI) | payer OTHER ==
[~2018-04-07] MED LIST changes: +NATURE'S BLEND100 M2 PO
== END | disposition home or self-care (01) ==
LOC: ORTHO 03:24
DX: M25.561 Pain in right knee (principal); M19.90 Unspecified osteoarthritis, unspecified site

== ENCOUNTER 2018-04-23 09:29 | Emergency (ER) | payer OTHER ==
[~2018-04-23] VITALS: Ht 170.1 cm; Wt 86.2 kg
[~2018-04-23 09:29] MED LIST changes: +MAGNESIUM OXID400 MG PO; +OYSTER SHELL 51 EACH PO; +POTASSIUM CHLO20 ME4 PO; +VITAMIN B-121000 MC3 SL
[2018-04-23 09:30] VITALS: BP 163/111
[2018-04-23] MEDS ORDERED: IBU400 M1 PO (12:34)
== END 2018-04-23 12:41 | disposition home or self-care (01) ==
LOC: ED 09:29
DX: M54.5 Low back pain (principal); K21.9 Gastro-esophageal reflux disease without esophagitis; I10 Essential (primary) hypertension; I48.91 Unspecified atrial fibrillation; J44.1 Chronic obstructive pulmonary disease with (acute) exacerbation; E16.2 Hypoglycemia, unspecified; E11.65 Type 2 diabetes mellitus with hyperglycemia; Z79.899 Other long term (current) drug therapy; Z90.49 Acquired absence of other specified parts of digestive tract

== ENCOUNTER 2018-04-25 06:27 | Inpatient (IN) | payer OTHER ==
[2018-04-25] VITALS (17 sets, daily range): BP systolic 126–184; BP diastolic 62–108
[~2018-04-25] VITALS: Ht 170.1 cm; Wt 87.2 kg
[~2018-04-25 06:27] MED LIST changes: +IBU400 M1 PO
[2018-04-25] MEDS ORDERED: NEURONTIN300 MG PO (06:45)
[2018-04-25 07:39] LABS: BASO # 0.1 10*3/uL (0.0-0.1); EOS # 0.4 10*3/uL (0.0-0.4); EOS % 3.9 % (1.0-4.0); HEMATOCRIT 38.6 % (37.0-47.0); HEMOGLOBIN 12.4 g/dl (12.0-16.0); LYMPH # 0.9 10*3/uL (1.3-4.4); LYMPH % 10.5 % (27.0-41.0); MEAN CELL VOLUME 100.5 fl (81.0-99.0); MEAN CORPUSCULAR HGB 32.3 pg (27.0-31.0); MEAN CORPUSCULAR HGB CONC 32.1 g/dl (33.0-37.0); MEAN PLATELET VOLUME 8.7 fl (9.6-12.3); MONO % 10.6 % (3.0-9.0); NEUT # 6.6 10*3/uL (2.3-7.9); NEUT % 73.6 % (47.0-73.0); PLATELET COUNT AUTOMATED 247 10*3/uL (130-400); RED BLOOD COUNT 3.84 10*6/uL (4.10-5.10); RED CELL DISTRI WIDTH 15.9 % (0-14.5)
[2018-04-25 07:48] LABS: ACT PARTIAL THROMBO TIME 37.4 SECONDS (20.8-31.5); INTERNATIONAL NORM RATIO 1.3 (2.0-3.5)
[2018-04-25 07:56] LABS: ALBUMIN 2.9 gm/dl (3.1-4.5); ALKALINE PHOSPHATASE 272 U/L (45-117); BUN 17 mg/dl (7-24); CHLORIDE 102 mmol/L (98-107); CREATININE 1.03 mg/dL (0.55-1.02); POTASSIUM 4.6 mmol/L (3.5-5.1); SGOT/AST 62 IU/L (3-35); SGPT/ALT 28 U/L (12-78); SODIUM 138 mmol/L (136-145); TOTAL PROTEIN 7.5 gm/dL (6.4-8.2)
[2018-04-25 07:57] LABS: ETHYL ALCOHOL < 3.0 mg/dl (<3); TROPONIN I < 0.015 ng/ml (<0.045)
[2018-04-25 08:18] LABS: BILIRUBIN NEGATIVE (NEGATIVE); BLOOD TRACE-INTACT (NEGATIVE); CLARITY CLEAR (CLEAR); COLOR YELLOW (YELLOW); GLUCOSE NEGATIVE (NEGATIVE); KETONE NEGATIVE (NEGATIVE); LEUKO ESTERASE TRACE (NEGATIVE); NITRITE NEGATIVE (NEGATIVE); PH 5.5 (5.0-9.0); SPECIFIC GRAVITY 1.015 (1.005-1.030); UROBILINOGEN 0.2 E.U./dl (0.2-1.0)
[2018-04-25 08:28] LABS: URINE AMPHETAMINES < 1000 (1000ng/ml); URINE BARBITURATES < 200 (200ng/ml); URINE BENZODIAZEPINES < 200 (200ng/ml); URINE CANNABINOIDS (THC) < 50 (50ng/ml); URINE COCAINE < 300 (300ng/ml); URINE METHADONE < 300 (300ng/ml); URINE OPIATES > 300 (300ng/ml)
[2018-04-25 08:29] LABS: BACTERIA 1+
[2018-04-25 08:30] LABS: URINE PHENCYCLIDINE < 25 (25ng/ml)
[2018-04-25] MEDS ORDERED: PROTONIX40 MG PO (10:39)
[2018-04-26] VITALS: BP 159/86
[2018-04-26 06:32] LABS: HEMATOCRIT 36.1 % (37.0-47.0); HEMOGLOBIN 11.2 g/dl (12.0-16.0); MEAN CELL VOLUME 102.6 fl (81.0-99.0); MEAN CORPUSCULAR HGB 31.8 pg (27.0-31.0); MEAN PLATELET VOLUME 9.1 fl (9.6-12.3); PLATELET COUNT AUTOMATED 213 10*3/uL (130-400); RED BLOOD COUNT 3.52 10*6/uL (4.10-5.10); RED CELL DISTRI WIDTH 15.7 % (0-14.5)
[2018-04-26 07:01] LABS: ACT PARTIAL THROMBO TIME 35.1 SECONDS (20.8-31.5); INTERNATIONAL NORM RATIO 1.2 (2.0-3.5)
[2018-04-26 07:03] LABS: ALBUMIN 2.9 gm/dl (3.1-4.5); ALKALINE PHOSPHATASE 252 U/L (45-117); BUN 23 mg/dl (7-24); CHLORIDE 98 mmol/L (98-107); CHOLESTEROL 129 mg/dL (<200); CREATININE 0.84 mg/dL (0.55-1.02); FREE T4 1.19 ng/dl (0.76-1.46); HDL CHOLESTEROL 39 mg/dl (40-60); LDL CHOLESTEROL 70 mg/dL (9-159); PHOSPHOROUS 4.1 mg/dL (2.5-4.9); POTASSIUM 5.1 mmol/L (3.5-5.1); SGOT/AST 38 IU/L (3-35); SGPT/ALT 27 U/L (12-78); SODIUM 135 mmol/L (136-145); TOTAL PROTEIN 7.3 gm/dL (6.4-8.2); TRIGLYCERIDES 100 mg/dl (<150); VLDL CHOLESTEROL 20 mg/dL (6-40)
[2018-04-26 07:07] LABS: THYROID STIM HORMONE (HS) 0.282 uIU/ml (0.358-4.75)
[2018-04-26 07:13] LABS: PLATELET SUFFICIENCY NORMAL (NORMAL); TOTAL CELLS COUNTED 100 #CELLS
[2018-04-26 07:31] LABS: VITAMIN D, 25-HYDROXY 32.5 ng/mL (30-100)
[2018-04-26 08:00] VITALS: BP 154/87
[2018-04-26 12:00] VITALS: BP 132/72
[2018-04-26 14:00] VITALS: BP 150/93
[2018-04-26 20:00] VITALS: BP 125/89
[2018-04-27] VITALS: BP 156/88
[2018-04-27 08:00] VITALS: BP 155/96
[2018-04-27] MEDS ORDERED: DULOXETINE HCL30 MG PO (08:06)
[2018-04-27] MEDS ORDERED: PREDNISONE10 MG PO (08:06)
[2018-04-27] MEDS ORDERED: SSD25 GM T (08:06)
[2018-04-27] MEDS ORDERED: OXYCONTIN10 M1 PO (08:06)
[2018-04-27] MEDS ORDERED: OXYCODONE HCL5 MG PO (08:06)
[2018-04-27] MEDS ORDERED: CYCLOBENZAPRINE10 MG PO (08:09)
== END 2018-04-27 10:40 | disposition home or self-care (01) | DRG 551 ==
LOC: ED 06:27 → 5E 08:57 → EDHOLD 08:57 → 5E 09:23
PROVIDERS: Emergency Medicine; Internal Medicine
DX: M54.9 Dorsalgia, unspecified (principal); E43 Unspecified severe protein-calorie malnutrition; E87.2 Acidosis; I50.22 Chronic systolic (congestive) heart failure; I11.0 Hypertensive heart disease with heart failure; I48.91 Unspecified atrial fibrillation; T21.14XA Burn of first degree of lower back, initial encounter; K70.30 Alcoholic cirrhosis of liver without ascites; R74.0 Nonspecific elevation of levels of transaminase and lactic acid dehydrogenase [LDH]; J44.9 Chronic obstructive pulmonary disease, unspecified; E11.65 Type 2 diabetes mellitus with hyperglycemia; F10.10 Alcohol abuse, uncomplicated; Z96.651 Presence of right artificial knee joint; E66.9 Obesity, unspecified; F17.210 Nicotine dependence, cigarettes, uncomplicated; K21.9 Gastro-esophageal reflux disease without esophagitis; B19.20 Unspecified viral hepatitis C without hepatic coma; X08.8XXA Exposure to other specified smoke, fire and flames, initial encounter; Y93.9 Activity, unspecified; Z68.30 Body mass index [BMI] 30.0-30.9, adult; Y92.89 Other specified places as the place of occurrence of the external cause; Y99.8 Other external cause status; Z87.01 Personal history of pneumonia (recurrent); Z87.440 Personal history of urinary (tract) infections; Z79.899 Other long term (current) drug therapy; Z90.49 Acquired absence of other specified parts of digestive tract; Z82.49 Family history of ischemic heart disease and other diseases of the circulatory system; Z82.3 Family history of stroke; Z83.3 Family history of diabetes mellitus

== ENCOUNTER 2018-06-13 13:43 | Emergency (ER) | payer OTHER ==
[~2018-06-13] VITALS: Wt 86.2 kg
[~2018-06-13 13:43] MED LIST changes: +CYCLOBENZAPRINE10 MG PO; +DULOXETINE HCL30 MG PO; +OXYCODONE HCL5 MG PO; +OXYCONTIN10 M1 PO; +SSD25 GM T
[2018-06-13 13:57] VITALS: BP 124/87
== END 2018-06-13 16:17 | disposition home or self-care (01) ==
LOC: ED 13:43
DX: S99.921A Unspecified injury of right foot, initial encounter (principal); F17.200 Nicotine dependence, unspecified, uncomplicated; Z79.899 Other long term (current) drug therapy; W23.0XXA Caught, crushed, jammed, or pinched between moving objects, initial encounter; Y93.G1 Activity, food preparation and clean up; Y92.89 Other specified places as the place of occurrence of the external cause; Y99.8 Other external cause status

== ENCOUNTER → 2018-06-22 | Outpatient (CLI) | payer OTHER | END | disposition home or self-care (01) | LOC: CT 14:00 | DX: S92.321A Displaced fracture of second metatarsal bone, right foot, initial encounter for closed fracture (principal); S92.341A Displaced fracture of fourth metatarsal bone, right foot, initial encounter for closed fracture; X58.XXXA Exposure to other specified factors, initial encounter; Y93.89 Activity, other specified; Y92.89 Other specified places as the place of occurrence of the external cause; Y99.8 Other external cause status ==

== ENCOUNTER → 2018-08-11 | Outpatient (CLI) | payer OTHER ==
[~2018-08-11] MED LIST changes: +DOXYCYCLINE100 M3 PO; +TRAMADOL HCL50 MG PO; +VITAMIN B-121000 MC2 PO; +ZESTRIL10 MG PO
== END | disposition home or self-care (01) ==
LOC: RESCLI 04:15
DX: Z01.818 Encounter for other preprocedural examination (principal); I11.0 Hypertensive heart disease with heart failure; I50.22 Chronic systolic (congestive) heart failure; E11.42 Type 2 diabetes mellitus with diabetic polyneuropathy; I48.91 Unspecified atrial fibrillation; J44.9 Chronic obstructive pulmonary disease, unspecified; K21.9 Gastro-esophageal reflux disease without esophagitis; F17.210 Nicotine dependence, cigarettes, uncomplicated; E66.3 Overweight; Z87.81 Personal history of (healed) traumatic fracture; Z87.898 Personal history of other specified conditions

== ENCOUNTER → 2018-09-01 | Outpatient (CLI) | payer OTHER | END | disposition home or self-care (01) | LOC: RAD 15:56 | DX: J44.9 Chronic obstructive pulmonary disease, unspecified (principal) ==

== ENCOUNTER → 2018-09-08 | Day surgery (SDC) | payer OTHER ==
[~2018-09-08] VITALS: Ht 170.1 cm; Wt 86.2 kg
--- NOTE | ~2018-09-08 | WRIGHTHP ---
[place], [place] PATIENT HISTORY AND PHYSICAL EXAM NAME: ISAURA LOPEZ [facility] #: [id number] UNIT #: [id number] ROOM: DOCTOR: VALENTÍN PALMA DPM BIRTHDATE: [birth year] DOS: LOWER EXTREMITY PHYSICAL EXAMINATION: VASCULAR: She has had noninvasive vascular studies demonstrating good perfusion right lower extremity with good palpable pulses 2/4 DP and PT bilaterally. Good cap fill time. NEUROLOGICAL: She has a lack of protective sensation secondary to diabetic peripheral neuropathy. MUSCULOSKELETAL: She has a significant contracture of ankle joint. She has significant equinus contracture of the posterior muscle group on the right. She has significant stability of her midtarsal joint with subtalar joint neutral. She has significant instability in all 3 planes of her forefoot, relative to her mid foot. DERMATOLOGICAL: She has no open wounds. She has atrophic skin. It is thin in nature. ORTHOPEDIC EXAM: She has midfoot osteoarthritis, pes planus deformity, osteoarthritis flatfoot deformity with gross instability of her midfoot, hindfoot of her left side. VALENTÍN PALMA DPM CM:HISPHYS:PATIENT HISTORY AND PHYSICAL EXAMINATION 1845 08 VALENTÍN PALMA DPM 09/08/18 2007 interface
--- NOTE | ~2018-09-08 | WRIGHTHP ---
[place], [place] PATIENT HISTORY AND PHYSICAL EXAM NAME: ISAURA LOPEZ [facility] #: [id number] UNIT #: [id number] ROOM: DOCTOR: VALENTÍN PALMA DPM BIRTHDATE: [birth year] DOS: INDICATION NOTE: The patient is seen for very painful flatfoot deformity, unstable mid foot and hindfoot. At this time, she has been treated with attempt of nonoperative care and it has not been successful at this time. She is set for surgery at [facility] [place] on 09/08/2018. She is aware of pros, cons, risks, benefits, overcorrection, under correction, recurrence, numbness, infection, nonunion, delayed union, malunion, DVT, PE, limb loss, RSD, CRPS, nerve or artery vein damage, etc. She understands that limb loss is a possibility, even , etc. With this in mind, she has consented and understands pros, cons, risks and benefits. Additionally, she understands the risk of anticoagulation therapy. She is on 1 at this point in time and will not need further anticoagulation. She was given ____ as well. ORTHOPEDIC EXAM: She has osteoarthritis at the talonavicular joint, tarsometatarsal joint and she has an extremely hypermobile flat foot deformity of her right foot. VALENTÍN PALMA DPM CM:HISPHYS:PATIENT HISTORY AND PHYSICAL EXAMINATION 1845 10 VALENTÍN PALMA DPM 09/08/18 211 interface
--- NOTE | ~2018-09-08 | O ---
[place], [place] OPERATIVE NOTE NAME: ISAURA LOPEZ [facility] #: [id number] UNIT #: [id number] ROOM: DOCTOR: MINERVA TORRESVALENTÍN BIRTHDATE: [birth year] DOS: 09/08/2018 SURGEON: Valentín Palma DPM LEATHER LEVELER: Dr. Warner Bennett and Dr. Aman Valderrama PREOPERATIVE DIAGNOSES: 1. Gastrocnemius equinus. 2. Ankle joint equinus. 3. Pes planus. 4. PT tendon dysfunction. 5. Flat foot deformity. 6. Osteoarthritis of the mid foot. 7. Hallux valgus deformity, all the right foot. POSTOPERATIVE DIAGNOSES: 1. Gastrocnemius equinus. 2. Ankle joint equinus. 3. Pes planus. 4. PT tendon dysfunction. 5. Flat foot deformity. 6. Osteoarthritis of the mid foot. 7. Hallux valgus deformity, all the right foot. PROCEDURE PERFORMED: 1. Gastrocnemius recession. 2. Percutaneous calcaneal displacement of osteotomy split medially. 3. Gómez calcaneal lengthening osteotomy. 4. Talonavicular joint arthrodesis. 5. Lapidus bunionectomy all of the right foot. The patient was seen in the preop holding area. Appropriate site marking was performed. The patient agreed. She understands the perioperative management as well. With this in mind, she had a popliteal block done preoperatively. She was brought to the OR and placed well-padded OR table. Anesthesia was achieved. Once anesthesia was achieved, her right foot and leg were prepped and draped in usual sterile fashion. A hemostasis was accomplished by the mid-thigh tourniquet, which was inflated to 300 mmHg. PROCEDURES: PROCEDURE #1: Gastrocnemius recession: Attention to the posteromedial aspect to the right lower leg where an incision was made approximately 4 cm of the gastric aponeurosis was deepened in the same plane using sharp and blunt dissection, avoiding neurovascular structures, carried down the deep tissue, where the deep fascial tissue was incised. At this time, a Katherin procedure was performed to increase in range of motion at the ankle joint length and the lengthening the gastroc aponeurosis. The deep tissues were closed with 0 Vicryl, skin was closed with 2-0 nylon. PROCEDURE #2: Percutaneous calcaneal displacement osteotomy: Attention was [place], [place] OPERATIVE NOTE NAME: ISAURA LOPEZ UNIT #: [id number] ROOM: DOCTOR: VALENTÍN PALMA DPM BIRTHDATE: [birth year] directed to the posterior medial inferior border of calcaneus where a stab incision made. At this time, blunt dissection carried down to the bone and subperiosteal dissection was made to superior medial aspect of the calcaneus. At this point, a stab incision was made anterior to the Achilles, posterior to neurovascular bundle. Next, a straight hemostat was brought into the superior medial incision and directed across superiorly to the calcaneus, anteriorly to Achilles, posterior to neurovascular bundle and advanced laterally tenting the skin and ensuring not to hit the sural nerve. A stab incision was made and at this time, the straight hemostat was punctured through the lateral skin. At this time, the hemostat was withdrawn immediately and brought in from lateral to medial and grabbed to loosen the Gigli saw and drag it across superiorly across the calcaneus. Next, some steps were made adjacent to the inferior medial one in the superior inferior area of inferior medial incision, just adjacent to that. At this time, a subperiosteal and subfascial dissection created from inferior lateral to superior lateral. The hemostat exited out avoiding neurovascular structures right along the bone and the loose end of the Gigli saw was pulled through. Under fluoroscopy guidance, the Gigli saw was lined up. At this point in time, with dynamic stabilization of the plantar fascia and Achilles tendon, the calcaneus was cut. The Gigli saw was cut and the posterior fragment was displaced medially approximately 1 cm, was fixated with two 2.8 guidewires and a 7.3, 60 mm threaded partially compressed screw with compression superiorly. All the wounds were closed using 2-0 nylon. Next, attention was directed to the lateral aspect of the calcaneus. PROCEDURE #3: Gómez calcaneal displacement osteotomy: Attention was directed to the lateral aspect of the calcaneus, anteriorly approximately 1.5 cm proximal to the calcaneocuboid joint. It was deepened in the same plane using sharp and blunt dissection, avoiding neurovascular structures and identifying the peroneal tendons. Peroneal tendons were identified and retracted superiorly and inferiorly. At this point in time, the lateral wall of calcaneus was only exposed under fluoroscopy guidance and osteotomy was made and an Gómez calcaneal lengthening osteotomy was made. This was opened up with a laminar extrusion die corrector and a cancellous graft was inserted from lateral to medial, stabilizing the lateral column. There was significant gapping, some more bone graft was put in there and the guidewire was inserted to the distal aspect of the calcaneus prior to the calcaneocuboid joint. At this time, a 75 mm 7.3 long thread with 32 mm thread was inserted from posterior to superior, fixating ____ function causing compression of the posterior fragment and stabilization and a positional screw with the distal portion over the Gómez osteotomy. Deep tissues were closed with 0 Vicryl and the skin was closed with 2-0 nylon. PROCEDURE #4: Talonavicular joint arthrodesis. At this point in time, there is excessive motion at the talonavicular joint, this is temporary pin and there is noted to be gross instability in the TMT 1 as well as the talonavicular joint. So, an incision was made over the talonavicular joint, deep in the same plane using sharp and blunt scissors, avoiding neurovascular structure, carried down to the deep tissues. At this time, some amount of time was spent repairing the joint at the talonavicular joint with osteotomes, rongeurs, curettes, drills and the subchondral plate was removed ____ cancellous bone to the talonavicular joint. At this point in time, this is temporarily fixated and this was prepared [place], [place] OPERATIVE NOTE NAME: ISAURA LOPEZ UNIT #: [id number] ROOM: DOCTOR: VALENTÍN PALMA DPM BIRTHDATE: [birth year] for fusion. PROCEDURE #5: Lapidus procedure: At this time, excess of motion still note that the TMT 1 and at this point in time, the incision was deepened in the same plane sharply with blunt dissection, avoiding neurovascular structures, carried down to the deep tissues at TMT 1. This was carried down in the ligaments and soft tissues were resected as well as the base of first metatarsal and cuneiform. The medial aspect of the second metatarsal was debrided as well as significant amount of time was spent preparing the joint for arthrodesis with osteotomes, mallets, curettes, drills, exposing the cancellous bone. This was all temporarily fixated with multiple K wires. At this time, a 4.0 solid cortical screw was put in for the first metatarsal dorsally through the talus and to the inferior aspect of the first metatarsal to the compression. Sagittal plane stability was noted. At this time, a shear strain relief graft was inserted into the talonavicular joint as well as the TMT 1 joint. Next, an 8-hole plate was put along the medial aspect of the talus on the first ray on the first metatarsal. This is fixed in a combination of locking screws and nonlocking screws. This was fixated with great stability. After 2 hours, the tourniquet was dropped. The foot was plantigrade in stable position. The tripod of the first ray, fifth ray and calcaneus are noted to be in good position and at this point in time, a shear strain relief graft was inserted with allogenic bone to the talonavicular joint as well as the first metatarsal joint. This was packed very tightly and the fluoroscopy was checked in multiple planes noted to be in very stable, plantigrade and in much better position both clinically and radiographically. The deep tissues were closed with 0 Vicryl, skin closed with 2-0 nylon. All surgical wounds were dressed with Betadine-soaked Adaptic, 4 x 4s, Alex in a sterile compressive fashion. The patient tolerated the procedure and anesthesia well and left the OR with vital signs stable and vascular status intact. The univalve B-K cast was applied. She tolerated the procedure and anesthesia well and left the OR with vascular intact. VALENTÍN PALMA DPM CM:OPRECORD:OPERATIVE NOTE 1845 14 VALENTÍN PALMA DPM 09/09/18 0223 interface
[2018-09-08 08:50] VITALS: BP 116/75
[2018-09-08 18:25] VITALS: BP 117/71
[2018-09-08 18:40] VITALS: BP 88/56
[2018-09-08 18:55] VITALS: BP 98/52
[2018-09-08 19:10] VITALS: BP 88/49
[2018-09-08 19:25] VITALS: BP 101/52
== END | disposition home or self-care (01) ==
LOC: SDC 09-02 08:00
DX: M21.6X1 Other acquired deformities of right foot (principal); M67.873 Other specified disorders of tendon, right ankle and foot; M21.41 Flat foot [pes planus] (acquired), right foot; M19.071 Primary osteoarthritis, right ankle and foot; M20.11 Hallux valgus (acquired), right foot; I11.0 Hypertensive heart disease with heart failure; I50.9 Heart failure, unspecified; I48.2 Chronic atrial fibrillation; I25.10 Atherosclerotic heart disease of native coronary artery without angina pectoris; B19.20 Unspecified viral hepatitis C without hepatic coma; E11.40 Type 2 diabetes mellitus with diabetic neuropathy, unspecified; K21.9 Gastro-esophageal reflux disease without esophagitis; M19.90 Unspecified osteoarthritis, unspecified site; J44.9 Chronic obstructive pulmonary disease, unspecified; F17.210 Nicotine dependence, cigarettes, uncomplicated; G89.29 Other chronic pain; Z86.718 Personal history of other venous thrombosis and embolism; Z87.11 Personal history of peptic ulcer disease; Z90.49 Acquired absence of other specified parts of digestive tract; Z98.51 Tubal ligation status; Z98.890 Other specified postprocedural states; Z82.49 Family history of ischemic heart disease and other diseases of the circulatory system

== ENCOUNTER 2018-10-02 21:48 | Inpatient (IN) | payer OTHER ==
[~2018-10-02] VITALS: Ht 170.1 cm; Wt 90.5 kg
--- NOTE | ~2018-10-02 | CON ---
[place], [place] REPORT OF CONSULTATION [id number] UN[facility] #: [id number] ROOM: 421 DOCTOR: CHRISTA HERNANDEZ MD BIRTHDATE: [birth year] DOS: 10/06/2018 HISTORY OF PRESENT ILLNESS: A 63-year-old patient who presented after a falling episode, which was accidental because her right foot is in cast and sustained head, frontal mild contusion. Meanwhile, she was investigated for laboratory evaluation with H and H of 9 and 29, macrocytic indices was noticed. Lactic acid was 2.9. Her INR was 1.6. Comprehensive metabolic panel: Creatinine 1.25, BUN 7, GFR 53 and electrolyte balance, calcium 7.9 in the presence of albumin of 1.9. Alkaline phosphatase of 317, SGOT, GPT 39 and 18. Troponin within normal limit. ETOH level was high. Lactic acid continued to be elevated to 4.1. CT scan of the head was done, no acute intracranial pathology. INR was rechecked 1.4. Comprehensive metabolic panel was reassessed essentially to same pattern, hypertriglyceridemia 184. Elevation of AST, ALT 39 and 17 respectively with alkaline phosphatase of 308. Thyroid studies were unremarkable. Serum ammonia level 36, slightly elevated; hemoglobin A1c was within normal limits. Latest CBC, further drop in H and H to 8.8 and 26. Basic metabolic panel 3.2, potassium has been addressed. Urine culture has been 50,000 bacteria population. PAST MEDICAL HISTORY: Associated with COPD, alcohol dependency, atrial fibrillation, congestive heart failure, podiatric injuries, hepatitis C, hypertension, chronic back pain, neuropathy, protein calorie malnutrition, diabetes mellitus. PAST SURGICAL HISTORY: Cholecystectomy, vertebroplasty laryngoscopy, right knee joint prosthesis, cardiac catheterization right foot and right wrist. SOCIAL HISTORY: Smoker and alcohol consumer heavily. FAMILY HISTORY: Noncontributory. MEDICATIONS: Reviewed. ALLERGIES: No known medication. REVIEW OF SYSTEMS: HEENT: Denies double vision, blurred vision. RESPIRATORY: Denies acute shortness of breath. CARDIOVASCULAR: Denies acute chest pain. DIGESTIVE SYSTEM: No hematemesis, no hematochezia. PHYSICAL EXAMINATION: VITAL SIGNS: Stable, nontoxic at the present time. HEENT: Head normocephalic, nontraumatic, except a small contusion spot in front of her forehead approximately 1-1/2 cm in its diameters. Eyes: Pupils round, reactive. Sclerae nonicteric. Mouth and buccal mucosa benign. NECK: Supple, no thyromegaly. CHEST: Symmetric anatomy. Few scattered wheezes anteriorly could be auscultated. HEART: Atrial fibrillation with moderate ventricular response. No murmur. [place], [place] REPORT OF CONSULTATION NAME: ISAURA LOPEZ UNIT #: [id number] ROOM: 421 DOCTOR: CHRISTA HERNANDEZ MD BIRTHDATE: [birth year] ABDOMEN: Soft. No hepato-organomegaly. Bowel sounds present. EXTREMITIES: Stasis dermatitis and 2+ edema, left and right foot in the cast and bandage. NEUROLOGIC: Alert, oriented. Labs reviewed, records reviewed. IMPRESSION: Anemia with drop in H, although macrocytic, but history of alcoholism, hepatitis C, would remain concerned if she has portal hypertension and if there is any contribution from her liver insult as well. Her INR was prolonged. She has history of lung disease and COPD with contribution from nicotine consumption daily. PLAN ON DISCUSSION: Other adjunctive diagnoses as outlined in paragraph of past medical, surgical history. We are going to proceed with EGD and colonoscopy. CHRISTA HERNANDEZ MD CM:CONSTR:REPORT OF CONSULTATION 1505 10/07/18 0118 interface
--- NOTE | ~2018-10-02 | EKG ---
[place], [place] ELECTROCARDIOGRAM REPORT NAME: ISAURA LOPEZ UNIT #: [id number] ROOM: 421 DOCTOR: WILLIAM DRAFT REPORT BIRTHDATE: [birth year] [facility] Test Date: 2018-10-02 Test Time: 22:31:44 Pat Name: ISAURA LOPEZ Department: Room: 421 Gender: F Preform Plate Maker: LELA : 1955 Requested By: PHOEBE SILVERMAN Order Number: [id number] Reading MD: Bg Wagoner MD Measurements Intervals [place] Rate: 85 P: DC: QRS: 38 QRSD: 90 T: 241 QT: 316 QTc: 376 Interpretive Statements Atrial fibrillation Low voltage, extremity and precordial leads Nonspecific T abnormalities, lateral leads Compared to ECG 08/06/2018 15:50:49 T-wave abnormality now present Early repolarization no longer present Possible ischemia no longer present Electronically Signed On 10-03-2018 15:31:31 PST by Bg Wagoner MD CM:EKGRPT:ELECTROCARDIOGRAM REPORT [id number] PHOEBE DEL VALLE DRAFT REPORT PHOEBE SILVERMAN DO
--- NOTE | ~2018-10-02 | O ---
[place], [place] OPERATIVE NOTE [id number] UN[facility] #: [id number] ROOM: 421 DOCTOR: RUDY HERNANDEZ MDORTIZKLAUDIA BIRTHDATE: [birth year] DOS: 10/06/2018 INDICATIONS: This is a 63-year-old patient who presented with chief complaint of anemia. Further drop in H and H, status post known history of hepatitis C and alcohol dependency. PROCEDURE: Today's procedure part of investigation is panendoscopy and colonoscopy. PREMEDICATION: Propofol. SCOPE: Olympus forward-viewing gastroscope Q10 video. REPORT: After putting the patient in left lateral position and application of lubricant to the scope, the scope was introduced. Thereafter, under direct visualization, advanced through the length of esophagus without difficulty. At 6 o'clock position, a trace of esophageal varicosity noticed. No bleeding, however. Gastric pouch was entered. A small hiatal hernia noticed. Gastritis was seen. Antral biopsy obtained for H. pylori. Duodenal bulb, second and third part within normal limit, withdrawn along the lesser curvature. Air was suctioned out. The patient was extubated, tolerated the procedure well. IMPRESSION: Small hiatal hernia, trace esophageal varicosity, gastritis, status post biopsy. PLAN AND DISCUSSION: This patient has to remain on beta steven, nadolol versus Inderal availability of her insurance choice, equaling with 10 mg b.i.d. at least and abstaining from alcohol as well as smoking and antireflux with elevation of the head of the bed 6 inch all time, and omeprazole 20 mg 1 every day would be suffice management. INDICATIONS: The patient has presented with anemia, undergoing investigation, suspected pathology in the colon has been under search. PROCEDURE: Today's procedure part of investigation is colonoscopy plus biopsy and piecemeal polypectomy of a polyp from splenic flexure. PREMEDICATION: Propofol. SCOPE: Olympus forward-viewing colonoscope 10L video. REPORT: After putting the patient in left lateral position and application of lubricant to the scope, the scope was introduced. Thereafter, under direct visualization, advanced through the length of colon without difficulty. Nonspecific evidence of colitis in the colon on CT scan that has been read is consistent with the finding of nonspecific colitis colonoscopically. Biopsies from the left colon and sigmoid colon was obtained, photographed and the patient was gradually extubated, tolerated procedure well. [place], [place] OPERATIVE NOTE NAME: ISAURA LOPEZ UNIT #: [id number] ROOM: 421 DOCTOR: MARY WANG,CHRISTA BIRTHDATE: [birth year] IMPRESSION:, 1. Nonspecific colitis, left colon and sigmoid colon, status post biopsy. 2. Diverticulosis in rare form. 3. Splenic flexure sessile polypoid lesion status post piecemeal polypectomy. PLAN AND DISCUSSION: This colonoscopy was up to cecum. Ileocecal valve has been normal. There was no other pathology throughout the length of ascending, transverse colon. Etiology of nonspecific colitis, unknown at this time, awaiting path report. I trust this going to be inflammatory and is going to be self-containing. PLAN: Feeding the patient with regular diet and correcting her electrolytes, potassium and advising her to abstain from nicotine and alcohol. CHRISTA HERNANDEZ MD CM:OPRECORD:OPERATIVE NOTE 1540 1642 CHRISTA HERNANDEZ MD 10/13/18 0720 interface
[~2018-10-02 21:48] MED LIST changes: -VITAMIN B-121000 MC2 PO; -ZESTRIL10 MG PO
[2018-10-02 21:53] VITALS: BP 98/82
[2018-10-02 22:53] LABS: BASO # 0.1 10*3/uL (0.0-0.1); BASO % 0.7 % (0.0-1.0); EOS # 0.4 10*3/uL (0.0-0.4); EOS % 4.4 % (1.0-4.0); HEMATOCRIT 29.2 % (37.0-47.0); HEMOGLOBIN 9.3 g/dl (12.0-16.0); LYMPH # 1.2 10*3/uL (1.3-4.4); LYMPH % 13.8 % (27.0-41.0); MEAN CELL VOLUME 106.6 fl (81.0-99.0); MEAN CORPUSCULAR HGB 33.9 pg (27.0-31.0); MEAN CORPUSCULAR HGB CONC 31.8 g/dl (33.0-37.0); MEAN PLATELET VOLUME 9.5 fl (9.6-12.3); MONO # 0.9 10*3/uL (0.1-1.0); MONO % 9.9 % (3.0-9.0); NEUT # 6.2 10*3/uL (2.3-7.9); PLATELET COUNT AUTOMATED 229 10*3/uL (130-400); RED BLOOD COUNT 2.74 10*6/uL (4.10-5.10); RED CELL DISTRI WIDTH 16.7 % (0-14.5); WHITE BLOOD COUNT 8.8 10*3/uL (4.8-10.8)
[2018-10-02 23:02] LABS: INTERNATIONAL NORM RATIO 1.6 (2.0-3.5)
[2018-10-02 23:10] LABS: ALBUMIN 1.9 gm/dl (3.1-4.5); ALKALINE PHOSPHATASE 317 U/L (45-117); BUN 7 mg/dl (7-24); CHLORIDE 104 mmol/L (98-107); CREATININE 1.25 mg/dL (0.55-1.02); POTASSIUM 4.2 mmol/L (3.5-5.1); SGOT/AST 39 IU/L (3-35); SGPT/ALT 18 U/L (12-78); SODIUM 137 mmol/L (136-145); TOTAL PROTEIN 6.5 gm/dL (6.4-8.2)
[2018-10-02 23:19] VITALS: BP 99/80
[2018-10-02 23:23] LABS: TROPONIN I < 0.015 ng/ml (<0.045)
[2018-10-03 01:20] VITALS: BP 90/62
[2018-10-03 06:28] LABS: BASO # 0.1 10*3/uL (0.0-0.1); BASO % 0.8 % (0.0-1.0); EOS # 0.3 10*3/uL (0.0-0.4); EOS % 3.9 % (1.0-4.0); HEMATOCRIT 26.5 % (37.0-47.0); HEMOGLOBIN 8.3 g/dl (12.0-16.0); LYMPH # 0.9 10*3/uL (1.3-4.4); LYMPH % 11.2 % (27.0-41.0); MEAN CELL VOLUME 105.6 fl (81.0-99.0); MEAN CORPUSCULAR HGB 33.1 pg (27.0-31.0); MEAN CORPUSCULAR HGB CONC 31.3 g/dl (33.0-37.0); MEAN PLATELET VOLUME 9.4 fl (9.6-12.3); MONO # 0.7 10*3/uL (0.1-1.0); MONO % 8.8 % (3.0-9.0); NEUT # 5.9 10*3/uL (2.3-7.9); PLATELET COUNT AUTOMATED 203 10*3/uL (130-400); RED BLOOD COUNT 2.51 10*6/uL (4.10-5.10); RED CELL DISTRI WIDTH 16.3 % (0-14.5); WHITE BLOOD COUNT 7.9 10*3/uL (4.8-10.8)
[2018-10-03 06:33] LABS: INTERNATIONAL NORM RATIO 1.4 (2.0-3.5)
[2018-10-03 06:38] LABS: BUN 6 mg/dl (7-24)
[2018-10-03 06:39] LABS: ALBUMIN 1.9 gm/dl (3.1-4.5); ALKALINE PHOSPHATASE 308 U/L (45-117); CHLORIDE 108 mmol/L (98-107); CHOLESTEROL 80 mg/dL (<200); CREATININE 0.96 mg/dL (0.55-1.02); HDL CHOLESTEROL 16 mg/dl (40-60); LDL CHOLESTEROL 27 mg/dL (9-159); PHOSPHOROUS 3.4 mg/dL (2.5-4.9); POTASSIUM 3.8 mmol/L (3.5-5.1); SGOT/AST 39 IU/L (3-35); SGPT/ALT 17 U/L (12-78); SODIUM 140 mmol/L (136-145); TOTAL PROTEIN 6.2 gm/dL (6.4-8.2); TRIGLYCERIDES 184 mg/dl (<150); VLDL CHOLESTEROL 37 mg/dL (6-40)
[2018-10-03 06:40] LABS: FREE T4 1.17 ng/dl (0.76-1.46)
[2018-10-03 06:45] LABS: THYROID STIM HORMONE (HS) 0.792 uIU/ml (0.358-4.75)
[2018-10-03] MEDS ORDERED: ZESTRIL10 MG PO (07:07)
[2018-10-03 08:00] VITALS: BP 100/52
[2018-10-03 08:28] LABS: VITAMIN D, 25-HYDROXY 29.7 ng/mL (30-100)
[2018-10-03] MEDS ORDERED: VITAMIN B-121000 MC2 PO (10:53)
[2018-10-03 12:00] VITALS: BP 92/56
[2018-10-03 12:31] LABS: BILIRUBIN NEGATIVE (NEGATIVE); BLOOD NEGATIVE (NEGATIVE); CLARITY SL CLOUDY (CLEAR); COLOR YELLOW (YELLOW); GLUCOSE NEGATIVE (NEGATIVE); KETONE NEGATIVE (NEGATIVE); LEUKO ESTERASE 2+ (NEGATIVE); NITRITE NEGATIVE (NEGATIVE); PH 5.5 (5.0-9.0); SPECIFIC GRAVITY 1.015 (1.005-1.030); UROBILINOGEN 0.2 E.U./dl (0.2-1.0)
[2018-10-03 13:01] LABS: BACTERIA 1+; EPITHELIAL CELLS 15-20; RBC 16-20 rbc/hpf (0-2); WBC 16-20 wbc/hpf (0-5)
[2018-10-03 16:00] VITALS: BP 106/74
[2018-10-03 20:00] VITALS: BP 114/70
[2018-10-04] VITALS (12 sets, daily range): BP systolic 117–136; BP diastolic 57–79
[2018-10-04 06:30] LABS: BASO % 0.8 % (0.0-1.0); EOS # 0.3 10*3/uL (0.0-0.4); EOS % 6.3 % (1.0-4.0); HEMATOCRIT 21.5 % (37.0-47.0); HEMOGLOBIN 6.7 g/dl (12.0-16.0); LYMPH # 0.8 10*3/uL (1.3-4.4); LYMPH % 20.7 % (27.0-41.0); MEAN CELL VOLUME 104.9 fl (81.0-99.0); MEAN CORPUSCULAR HGB 32.7 pg (27.0-31.0); MEAN CORPUSCULAR HGB CONC 31.2 g/dl (33.0-37.0); MEAN PLATELET VOLUME 9.9 fl (9.6-12.3); MONO # 0.8 10*3/uL (0.1-1.0); MONO % 19.7 % (3.0-9.0); NEUT # 2.1 10*3/uL (2.3-7.9); NEUT % 52.2 % (47.0-73.0); RED BLOOD COUNT 2.05 10*6/uL (4.10-5.10); RED CELL DISTRI WIDTH 16.1 % (0-14.5)
[2018-10-04 06:59] LABS: ALBUMIN 1.5 gm/dl (3.1-4.5); BUN 7 mg/dl (7-24); CHLORIDE 108 mmol/L (98-107); CREATININE 0.74 mg/dL (0.55-1.02); PHOSPHOROUS 2.3 mg/dL (2.5-4.9); POTASSIUM 3.3 mmol/L (3.5-5.1); SGOT/AST 28 IU/L (3-35); SGPT/ALT 13 U/L (12-78); SODIUM 141 mmol/L (136-145)
[2018-10-04 07:00] LABS: ALKALINE PHOSPHATASE 236 U/L (45-117); TOTAL PROTEIN 5.2 gm/dL (6.4-8.2)
[2018-10-04 07:04] LABS: PLATELET COUNT AUTOMATED 133 10*3/uL (130-400)
[2018-10-04 17:46] LABS: HEMATOCRIT 26.9 % (37.0-47.0)
[2018-10-04 17:51] LABS: HEMOGLOBIN 8.8 g/dl (12.0-16.0)
[2018-10-05] VITALS (10 sets, daily range): BP systolic 93–122; BP diastolic 52–85
[2018-10-05 06:57] LABS: HEMOGLOBIN 8.2 g/dl (12.0-16.0); MEAN CORPUSCULAR HGB 32.9 pg (27.0-31.0); MEAN CORPUSCULAR HGB CONC 32.8 g/dl (33.0-37.0); MEAN PLATELET VOLUME 9.7 fl (9.6-12.3); PLATELET COUNT AUTOMATED 128 10*3/uL (130-400); RED BLOOD COUNT 2.49 10*6/uL (4.10-5.10); RED CELL DISTRI WIDTH 16.6 % (0-14.5); WHITE BLOOD COUNT 3.6 10*3/uL (4.8-10.8)
[2018-10-05 07:09] LABS: MEAN CELL VOLUME 100.4 fl (81.0-99.0)
[2018-10-05 07:27] LABS: PLATELET SUFFICIENCY LOW (NORMAL); POLYCHROMASIA SLIGHT; STOMATOCYTE FEW; TOTAL CELLS COUNTED 100 #CELLS
[2018-10-05 07:35] LABS: BUN 7 mg/dl (7-24); CHLORIDE 103 mmol/L (98-107); CREATININE 0.67 mg/dL (0.55-1.02); POTASSIUM 3.3 mmol/L (3.5-5.1); SODIUM 137 mmol/L (136-145)
[2018-10-06] VITALS (9 sets, daily range): BP systolic 74–125; BP diastolic 31–86
[2018-10-06 06:29] LABS: HEMATOCRIT 26.9 % (37.0-47.0); HEMOGLOBIN 8.8 g/dl (12.0-16.0); MEAN CELL VOLUME 98.9 fl (81.0-99.0); MEAN CORPUSCULAR HGB 32.4 pg (27.0-31.0); MEAN CORPUSCULAR HGB CONC 32.7 g/dl (33.0-37.0); MEAN PLATELET VOLUME 10.4 fl (9.6-12.3); PLATELET COUNT AUTOMATED 129 10*3/uL (130-400); RED BLOOD COUNT 2.72 10*6/uL (4.10-5.10); RED CELL DISTRI WIDTH 17.3 % (0-14.5); WHITE BLOOD COUNT 3.6 10*3/uL (4.8-10.8)
[2018-10-06 06:40] LABS: BUN 6 mg/dl (7-24); CHLORIDE 102 mmol/L (98-107); CREATININE 0.74 mg/dL (0.55-1.02); POTASSIUM 3.2 mmol/L (3.5-5.1); SODIUM 139 mmol/L (136-145)
[2018-10-06 07:56] LABS: BASOPHILS 3 % (0-1); PLATELET SUFFICIENCY LOW (NORMAL); POLYCHROMASIA SLIGHT; TOTAL CELLS COUNTED 100 #CELLS
[2018-10-07] VITALS: BP 104/58
[2018-10-07 06:21] LABS: BASO # 0.1 10*3/uL (0.0-0.1); BASO % 1.2 % (0.0-1.0); EOS # 0.2 10*3/uL (0.0-0.4); EOS % 5.1 % (1.0-4.0); HEMATOCRIT 29.2 % (37.0-47.0); HEMOGLOBIN 9.4 g/dl (12.0-16.0); LYMPH # 0.8 10*3/uL (1.3-4.4); LYMPH % 19.7 % (27.0-41.0); MEAN CELL VOLUME 100.3 fl (81.0-99.0); MEAN CORPUSCULAR HGB 32.3 pg (27.0-31.0); MEAN CORPUSCULAR HGB CONC 32.2 g/dl (33.0-37.0); MONO # 0.8 10*3/uL (0.1-1.0); MONO % 18.7 % (3.0-9.0); NEUT # 2.3 10*3/uL (2.3-7.9); NEUT % 55.1 % (47.0-73.0); PLATELET COUNT AUTOMATED 149 10*3/uL (130-400); RED BLOOD COUNT 2.91 10*6/uL (4.10-5.10); RED CELL DISTRI WIDTH 16.9 % (0-14.5); WHITE BLOOD COUNT 4.1 10*3/uL (4.8-10.8)
[2018-10-07 06:27] LABS: BUN 6 mg/dl (7-24); CHLORIDE 103 mmol/L (98-107); CREATININE 0.74 mg/dL (0.55-1.02); POTASSIUM 3.5 mmol/L (3.5-5.1); SODIUM 139 mmol/L (136-145)
[2018-10-07 08:00] VITALS: BP 120/62
[2018-10-07 12:00] VITALS: BP 101/63
[2018-10-07 15:55] VITALS: BP 95/54
[2018-10-07 20:00] VITALS: BP 96/58
[2018-10-08] VITALS: BP 100/60
[2018-10-08 08:00] VITALS: BP 96/50
[2018-10-08 12:00] VITALS: BP 94/54
== END 2018-10-08 15:55 | disposition other institution (70) | DRG 896 ==
LOC: ED 21:48 → EDHOLD 10-03 00:36 → 4E 10-03 00:36
PROVIDERS: Emergency Medicine; Internal Medicine; Internal Medicine Gastroenterology
PROC: 30233N1 Transfusion of Nonautologous Red Blood Cells into Peripheral Vein, Percutaneous Approach (ICD-10-PCS; principal; 2018-10-04)
PROC: 0DB78ZX Excision of Stomach, Pylorus, Via Natural or Artificial Opening Endoscopic, Diagnostic (ICD-10-PCS; 2018-10-06)
PROC: 0DBN8ZX Excision of Sigmoid Colon, Via Natural or Artificial Opening Endoscopic, Diagnostic (ICD-10-PCS; 2018-10-06)
PROC: 0DBL8ZZ Excision of Transverse Colon, Via Natural or Artificial Opening Endoscopic (ICD-10-PCS; 2018-10-06)
DX: F10.929 Alcohol use, unspecified with intoxication, unspecified (principal); N17.0 Acute kidney failure with tubular necrosis; E43 Unspecified severe protein-calorie malnutrition; R65.11 Systemic inflammatory response syndrome (SIRS) of non-infectious origin with acute organ dysfunction; N39.0 Urinary tract infection, site not specified; J44.1 Chronic obstructive pulmonary disease with (acute) exacerbation; E87.2 Acidosis; I50.22 Chronic systolic (congestive) heart failure; D68.59 Other primary thrombophilia; I85.00 Esophageal varices without bleeding; D53.9 Nutritional anemia, unspecified; I10 Essential (primary) hypertension; E66.09 Other obesity due to excess calories; M54.5 Low back pain; G89.29 Other chronic pain; I48.0 Paroxysmal atrial fibrillation; E11.65 Type 2 diabetes mellitus with hyperglycemia; B18.2 Chronic viral hepatitis C; K21.9 Gastro-esophageal reflux disease without esophagitis; S61.412A Laceration without foreign body of left hand, initial encounter; S61.411A Laceration without foreign body of right hand, initial encounter; Z96.651 Presence of right artificial knee joint; F17.210 Nicotine dependence, cigarettes, uncomplicated; I11.0 Hypertensive heart disease with heart failure; E78.1 Pure hyperglyceridemia; E11.40 Type 2 diabetes mellitus with diabetic neuropathy, unspecified; K52.9 Noninfective gastroenteritis and colitis, unspecified; K57.90 Diverticulosis of intestine, part unspecified, without perforation or abscess without bleeding; R29.6 Repeated falls; K70.30 Alcoholic cirrhosis of liver without ascites; K29.70 Gastritis, unspecified, without bleeding; D12.3 Benign neoplasm of transverse colon; K44.9 Diaphragmatic hernia without obstruction or gangrene; R74.0 Nonspecific elevation of levels of transaminase and lactic acid dehydrogenase [LDH]; W18.39XA Other fall on same level, initial encounter; Y93.89 Activity, other specified; Y99.8 Other external cause status; Z71.6 Tobacco abuse counseling; Y92.89 Other specified places as the place of occurrence of the external cause; S99.921D Unspecified injury of right foot, subsequent encounter; Z90.49 Acquired absence of other specified parts of digestive tract; Z82.49 Family history of ischemic heart disease and other diseases of the circulatory system; Z83.3 Family history of diabetes mellitus; Z82.3 Family history of stroke; Z68.31 Body mass index [BMI] 31.0-31.9, adult; Z79.899 Other long term (current) drug therapy

== ENCOUNTER 2018-12-20 18:23 | Emergency (ER) | payer OTHER ==
[~2018-12-20] VITALS: Ht 170.1 cm; Wt 68.0 kg
[2018-12-20 18:23] VITALS: BP 125/85
[~2018-12-20 18:23] MED LIST changes: +VITAMIN B-121000 MC2 PO; +ZESTRIL10 MG PO
[2018-12-20 18:50] LABS: BILIRUBIN NEGATIVE (NEGATIVE); BLOOD TRACE-INTACT (NEGATIVE); CLARITY SL CLOUDY (CLEAR); COLOR YELLOW (YELLOW); GLUCOSE NEGATIVE (NEGATIVE); KETONE NEGATIVE (NEGATIVE); LEUKO ESTERASE 2+ (NEGATIVE); NITRITE NEGATIVE (NEGATIVE); PH 5.5 (5.0-9.0); SPECIFIC GRAVITY <= 1.005 (1.005-1.030); UROBILINOGEN 0.2 E.U./dl (0.2-1.0)
[2018-12-20 19:06] LABS: BACTERIA 4+; EPITHELIAL CELLS 0-2; WBC 51-100 wbc/hpf (0-5)
[2018-12-20] MEDS ORDERED: SEPTDS PO (19:16)
[2018-12-20] MEDS ORDERED: PYRIDIUM200 M1 PO (19:16)
== END 2018-12-20 19:35 | disposition home or self-care (01) ==
LOC: ED 18:23
PROVIDERS: Physician Assistant
DX: N39.0 Urinary tract infection, site not specified (principal); F17.200 Nicotine dependence, unspecified, uncomplicated; Z79.899 Other long term (current) drug therapy

== ENCOUNTER 2019-05-16 20:23 | Inpatient (IN) | payer OTHER ==
[~2019-05-16] VITALS: Ht 170.1 cm; Wt 75.6 kg
--- NOTE | ~2019-05-16 | EKG ---
[place], [place] ELECTROCARDIOGRAM REPORT NAME: ISAURA LOPEZ UNIT #: [id number] ROOM: [facility] DOCTOR: WILLIAM DRAFT REPORT BIRTHDATE: [birth year] [facility] Test Date: 2019-05-16 Test Time: 21:12:15 Pat Name: ISAURA LOPEZ Department: Room: [facility] Gender: F Dice Table Operator: SS RESP : 1955 Requested By: TIARRA SULLIVAN Order Number: [id number] Reading MD: Luiz Rose MD Measurements Intervals [place] Rate: 70 P: CT: QRS: 54 QRSD: 98 T: 259 QT: 362 QTc: 391 Interpretive Statements Atrial fibrillation Low voltage, extremity and precordial leads Anteroseptal infarct, age indeterminate Nonspecific T abnormalities, lateral leads Compared to ECG 10/02/2018 22:31:44 Myocardial infarct finding now present T-wave abnormality still present Electronically Signed On 05-17-2019 4:08:44 PDT by Luiz Rose MD CM:EKGRPT:ELECTROCARDIOGRAM REPORT [id number] TIARRA SULLIVAN MD EPIPHANY DRAFT REPORT TIARRA SULLIVAN MD
[~2019-05-16 20:23] MED LIST changes: +PYRIDIUM200 M1 PO; +SEPTDS PO
[2019-05-16 20:33] VITALS: BP 112/77
[2019-05-16 21:03] LABS: BASO # 0.1 10*3/uL (0.0-0.1); BASO % 1.8 % (0.0-1.0); EOS # 0.2 10*3/uL (0.0-0.4); EOS % 4.2 % (1.0-4.0); HEMATOCRIT 36.6 % (37.0-47.0); HEMOGLOBIN 12.1 g/dl (12.0-16.0); LYMPH # 0.9 10*3/uL (1.3-4.4); LYMPH % 16.6 % (27.0-41.0); MEAN CELL VOLUME 97.9 fl (81.0-99.0); MEAN CORPUSCULAR HGB 32.4 pg (27.0-31.0); MEAN CORPUSCULAR HGB CONC 33.1 g/dl (33.0-37.0); MEAN PLATELET VOLUME 8.9 fl (9.6-12.3); MONO # 0.4 10*3/uL (0.1-1.0); MONO % 7.4 % (3.0-9.0); NEUT # 3.9 10*3/uL (2.3-7.9); NEUT % 69.8 % (47.0-73.0); PLATELET COUNT AUTOMATED 121 10*3/uL (130-400); RED BLOOD COUNT 3.74 10*6/uL (4.10-5.10); RED CELL DISTRI WIDTH 19.4 % (0-14.5); WHITE BLOOD COUNT 5.7 10*3/uL (4.8-10.8)
[2019-05-16 21:20] LABS: INTERNATIONAL NORM RATIO 1.3 (2.0-3.5)
[2019-05-16 21:21] LABS: ALBUMIN 2.3 gm/dl (3.1-4.5); ALKALINE PHOSPHATASE 403 U/L (45-117); BUN 6 mg/dl (7-24); CHLORIDE 104 mmol/L (98-107); CREATININE 0.71 mg/dL (0.55-1.02); LIPASE 108 U/L (73-393); POTASSIUM 4.3 mmol/L (3.5-5.1); SGOT/AST 84 IU/L (3-35); SGPT/ALT 20 U/L (12-78); SODIUM 137 mmol/L (136-145); TOTAL PROTEIN 7.3 gm/dL (6.4-8.2)
[2019-05-16 21:22] LABS: TROPONIN I < 0.015 ng/ml (<0.045)
--- NOTE | 2019-05-16 22:06 | NUR ---
Notifed by lab Pt ETOH 329.
[2019-05-16 23:00] VITALS: BP 120/78
[2019-05-17] VITALS (12 sets, daily range): BP systolic 102–164; BP diastolic 71–99
--- NOTE | 2019-05-17 01:41 | NUR ---
DR. HUIZAR NOTIFIED OF CRITICAL L.A.
[2019-05-17 06:26] LABS: BASO # 0.1 10*3/uL (0.0-0.1); BASO % 1.8 % (0.0-1.0); EOS # 0.2 10*3/uL (0.0-0.4); EOS % 3.3 % (1.0-4.0); HEMATOCRIT 34.8 % (37.0-47.0); HEMOGLOBIN 11.3 g/dl (12.0-16.0); LYMPH # 0.5 10*3/uL (1.3-4.4); LYMPH % 11.8 % (27.0-41.0); MEAN CELL VOLUME 99.1 fl (81.0-99.0); MEAN CORPUSCULAR HGB 32.2 pg (27.0-31.0); MEAN CORPUSCULAR HGB CONC 32.5 g/dl (33.0-37.0); MEAN PLATELET VOLUME 9.2 fl (9.6-12.3); MONO # 0.4 10*3/uL (0.1-1.0); MONO % 7.9 % (3.0-9.0); NEUT # 3.4 10*3/uL (2.3-7.9); PLATELET COUNT AUTOMATED 92 10*3/uL (130-400); RED BLOOD COUNT 3.51 10*6/uL (4.10-5.10); RED CELL DISTRI WIDTH 19.5 % (0-14.5); WHITE BLOOD COUNT 4.6 10*3/uL (4.8-10.8)
[2019-05-17 06:29] LABS: BUN 5 mg/dl (7-24); CHLORIDE 108 mmol/L (98-107); CHOLESTEROL 94 mg/dL (<200); CREATININE 0.63 mg/dL (0.55-1.02); FREE T4 1.01 ng/dl (0.76-1.46); HDL CHOLESTEROL 34 mg/dl (40-60); LDL CHOLESTEROL 32 mg/dL (9-159); PHOSPHOROUS 2.9 mg/dL (2.5-4.9); POTASSIUM 3.9 mmol/L (3.5-5.1); SODIUM 142 mmol/L (136-145); TRIGLYCERIDES 140 mg/dl (<150); VLDL CHOLESTEROL 28 mg/dL (6-40)
--- NOTE | 2019-05-17 07:55 | NUR ---
PT REQUESTING PAIN MEDS FOR CHRONIC BACK PAIN. RESTING IN BED, APPEARS IN NO ACUTE DISTRESS.
--- NOTE | 2019-05-17 08:10 | NUR ---
PT REFUSES TO BE PLACED ON CM AT THIS TIME. REQUESTING BREATHING TREATMENT.
[2019-05-17 08:33] LABS: BILIRUBIN NEGATIVE (NEGATIVE); BLOOD TRACE-INTACT (NEGATIVE); CLARITY SL CLOUDY (CLEAR); COLOR YELLOW (YELLOW); GLUCOSE NEGATIVE (NEGATIVE); KETONE NEGATIVE (NEGATIVE); LEUKO ESTERASE 3+ (NEGATIVE); NITRITE POSITIVE (NEGATIVE); SPECIFIC GRAVITY 1.015 (1.005-1.030)
[2019-05-17 08:38] LABS: VITAMIN D, 25-HYDROXY 17.4 ng/mL (30-100)
--- NOTE | 2019-05-17 08:41 | NUR ---
BREAKFAST TRAY PROVIDED.
[2019-05-17 08:42] LABS: URINE AMPHETAMINES < 1000 (1000ng/ml); URINE BARBITURATES < 200 (200ng/ml); URINE BENZODIAZEPINES < 200 (200ng/ml); URINE CANNABINOIDS (THC) < 50 (50ng/ml); URINE COCAINE < 300 (300ng/ml); URINE METHADONE < 300 (300ng/ml); URINE OPIATES > 300 (300ng/ml)
[2019-05-17 08:44] LABS: WBC TNTC wbc/hpf (0-5)
[2019-05-17 08:45] LABS: BACTERIA 3+
[2019-05-17 08:46] LABS: URINE PHENCYCLIDINE < 25 (25ng/ml)
--- NOTE | 2019-05-17 09:21 | NUR ---
PT SLEEPING, RESPS EASY.
--- NOTE | 2019-05-17 11:18 | NUR ---
SEEP SLEEP, RESPS EASY, AWAKENED WITH STIMULATION.
--- NOTE | 2019-05-17 12:58 | NUR ---
WATCHING TV IN BED, EATING LUNCH TRAY. NO DISTRESS.
--- NOTE | 2019-05-17 14:00 | NUR ---
A 63, admitted to , under the services of RACHAEL Anderson DO with a diagnosis of CELLULITIS OF RIGHT LEG. Chief complaint is DIFFICULTY AMBULATING D/T LEGS PAINFUL AND NUMB. Patient arrived via stretcher from ER. Monitor applied. Initial assessment completed. Vital signs taken and recorded. RACHAEL ANDERSON DO notified of admission to the unit. Orders received. See assessment for past medical history, medications and allergies. Patient and/or family oriented to unit. [facility] visitation policy reviewed. Clothing/patient valuable form completed. ACE LOPEZ
--- NOTE | 2019-05-17 14:56 | NUR ---
DR. SUE AWARE OF PODIATRY CONSULT AND HAS SEEN THE PATIENT.
--- NOTE | 2019-05-17 15:00 | NUR ---
PHYSICAL THERAPY PAtient requests no PT this date and attempt tomorrow. Thank you for this referral. Gina Tamez,PT
--- NOTE | 2019-05-17 15:05 | NUR ---
Occupational Therapy evalaution offered but patient requested OT return tomorrow. Milagros Karimi OTR/l
[2019-05-17] MEDS ORDERED: NEURONTIN800 MG PO (15:12)
--- NOTE | 2019-05-17 15:14 | NUR ---
MED REC UPDATED USING INFORMATION PROVIDED BY THE PATIENT, ALSO CORRESPONDS WITH CLAIMS HISTORY
--- NOTE | 2019-05-17 16:37 | NUR ---
PATIENT MEDICATED WITH PRN NORCO, VISTARIL, AND ROBAXIN FOR BACK PAIN, ANXIETY, AND MUSCLE CRAMPS.
--- NOTE | 2019-05-17 18:05 | NUR ---
PRN PO NORCO, VISTARIL, AND ROBAXIN EFFECTIVE, PER PATIENT.
--- NOTE | 2019-05-17 19:29 | NUR ---
PATIENT CURRENTLY IN AFIB. HEART RATE 96-100 PER CM.
--- NOTE | 2019-05-17 20:43 | NUR ---
NEW 22G IV INITIATED IN L FOREARM DUE TO SITE IN LAC WAS LEAKING. IV SITE TO LAC REMOVED AND DSD APPLIED. PT TOLERATED WELL. IV FLUIDS INFUSING AT 80 ML/HR PER ORDER. PATIENT MEDICATED WITH IV ZOFRAN PER PRN ORDER FOR C/O NAUSEA. PT DOES NOT WANT TO TAKE SCHEDULED DOSE OF ATIVAN AT THIS TIME DUE TO NAUSEA. WILL MONITOR. CALL LIGHT IN REACH. BED ALARM INTACT.
--- NOTE | 2019-05-17 21:03 | NUR ---
NOTIFIED OF PATIENT'S C/O NAUSEA W/ FROTHY SPUTUM "SPIT UP" THE PATIENT DESCRIBES. PT'S LUNG SOUNDS ARE DIMINISHED T/O TRIPP WITH A FAINT EXP WHEEZE. DISCUSSED IV ZOFRAN GIVEN. INSTRUCTED TO ORDER MUCINEX BID.
[2019-05-18] VITALS: BP 146/69; BP 148/84
--- NOTE | 2019-05-18 02:16 | NUR ---
PT MEDICATED WITH PO NORCO AND PO ROBAXIN FOR C/O BLL PAIN & MUSCLE CRAMPING RATED 10/10. PO VISTARIL ALSO ADMINISTERED FOR C/O INCREASED ANXIETY. WILL MONITOR EFFECTIVENESS. KRYSTIAN HOSE/SCDs TAKEN OFF PER PT REQUEST. BED LOCKED IN LOW POSITION, BED ALARM INTACT, CALL LIGHT IN REACH.
--- NOTE | 2019-05-18 02:58 | NUR ---
EARLIER MEDICATIONS EFFECTIVE PER PT. WILL MONITOR. CALL LIGHT IN REACH.
--- NOTE | 2019-05-18 05:47 | NUR ---
SCHEDULED PO ATIVAN ADMINISTERED PER ORDER. WILL MONITOR. CALL LIGHT IN REACH.
[2019-05-18 06:11] LABS: EOS # 0.2 10*3/uL (0.0-0.4); EOS % 4.7 % (1.0-4.0); HEMATOCRIT 31.7 % (37.0-47.0); HEMOGLOBIN 10.2 g/dl (12.0-16.0); LYMPH # 0.5 10*3/uL (1.3-4.4); LYMPH % 13.8 % (27.0-41.0); MEAN CELL VOLUME 99.4 fl (81.0-99.0); MEAN CORPUSCULAR HGB CONC 32.2 g/dl (33.0-37.0); MEAN PLATELET VOLUME 10.3 fl (9.6-12.3); MONO # 0.3 10*3/uL (0.1-1.0); MONO % 8.9 % (3.0-9.0); NEUT # 2.7 10*3/uL (2.3-7.9); NEUT % 71.6 % (47.0-73.0); PLATELET COUNT AUTOMATED 72 10*3/uL (130-400); RED BLOOD COUNT 3.19 10*6/uL (4.10-5.10); RED CELL DISTRI WIDTH 19.6 % (0-14.5); WHITE BLOOD COUNT 3.8 10*3/uL (4.8-10.8)
[2019-05-18 06:37] LABS: BUN 6 mg/dl (7-24); CHLORIDE 108 mmol/L (98-107); POTASSIUM 4.2 mmol/L (3.5-5.1); SGOT/AST 48 IU/L (3-35); SGPT/ALT 14 U/L (12-78); SODIUM 140 mmol/L (136-145); TOTAL PROTEIN 6.1 gm/dL (6.4-8.2)
[2019-05-18 06:38] LABS: ALKALINE PHOSPHATASE 309 U/L (45-117); CREATININE 0.64 mg/dL (0.55-1.02)
[2019-05-18 07:45] VITALS: BP 150/98
--- NOTE | 2019-05-18 07:51 | NUR ---
PATIENT REPORTS SEEING MAN WALKING ON THE ROOF ALL MORNING AND PRESENTLY, NO MAN SEEN ON THE ROOF BY STAFF.
[2019-05-18 08:00] VITALS: BP 126/78
--- NOTE | 2019-05-18 09:00 | NUR ---
Audiometrist in to talk to patient. Patient states lives at home with family. There are few steps in the home. Physician: dwight zimmerman Pharmacy: [facility] Home health services: none Patient's level of ADLs: INDEPENDENT Patient has working utilities: all working DME: cane, walker Follow-up physician's appointment after d/c: will be made by hospitalist nurse director upon discharge Does patient want to access PORTAL?: no Discharge plan discussed with patient, patient lives at home with family, she uses a cane or walker for ambulation, patient states she will be going home when able, discussed with her VNA and she declines any services at this time, case management will follow. DELPHINE GORDILLO
--- NOTE | 2019-05-18 09:09 | NUR ---
ADMINISTERED IV MORPHINE X 1 ORDERED FOR BILATERAL LEGS PAIN.
--- NOTE | 2019-05-18 10:38 | NUR ---
MEDICATED WITH PRN PO ROBAXIN AND VISTARIL FOR MUSCLE CRAMPS AND ANXIETY.
--- NOTE | 2019-05-18 10:39 | NUR ---
PRN PO ROBAXIN AND VISTARIL EFFECTIVE, ALSO IV MORPHINE X 1 EFFECTIVE FOR PAIN TO LEGS LONG SHE IS NOT BEARING WEIGHT, PER PATIENT.
[2019-05-18 12:00] VITALS: BP 124/72
--- NOTE | 2019-05-18 12:08 | NUR ---
MEDICATED WITH PRN PO NORCO FOR BACK AND LEGS PAIN.
--- NOTE | 2019-05-18 13:05 | NUR ---
PHYSICAL THERAPY Patient evaluated on 4, full evaluation to follow. Continue with PT as per plan of care with fall, alarm, ma x(A) x 2, alcoholic and acute debility precautions. Will require SNF. PAtient is moderate complexity via chart review, tests and evaluation: [id number]. Thank you for this referral. Gina Tamez,PT
--- NOTE | 2019-05-18 13:55 | NUR ---
Occupational Therapy evaluation completed on 4 with full eval to follow. Precautions include fall risk, impaired insight/judgement, tremors,bed alarm,unable to step forward for transfers today c/o "knees popping", moderate complexity level [id number] via chart review, testing and evaluation. Thank you for this referral. Milagros Karimi OTR/l
[2019-05-18 14:00] VITALS: BP 110/55
[2019-05-18] MEDS ORDERED: DOXYCYCLINE100 M3 PO (14:22)
[2019-05-18] MEDS ORDERED: MUCINEX ER600 MG PO (14:22)
--- NOTE | 2019-05-18 15:17 | NUR ---
Discharge instructions reviewed with patient. Patient receptive and verbalizes understanding. Follow-up care arranged. Written instructions given to patient. ACE LOPEZ
--- NOTE | 2019-05-18 16:15 | NUR ---
PATIENT DISCHARGED TO FRONT LOBBY BY WHEELCHAIR, ACCOMPANIED BY [facility], FOR TRANSPORT HOME BY PRIVATE VEHICLE.
[2019-07-09] MEDS ORDERED: OXYCODONE HCL5 MG PO (15:48)
[2019-07-15] MEDS ORDERED: NEURONTIN800 MG PO (11:43)
[2019-07-15] MEDS ORDERED: LOPRESSOR25 MG PO (11:43)
[2019-07-15] MEDS ORDERED: VANCOMYCIN HCL125 MG PO (11:43)
[2019-07-15] MEDS ORDERED: VITAMIN B-1100 M1 PO (11:43)
[2019-07-15] MEDS ORDERED: PREDNISONE10 MG PO (11:43)
[2019-07-15] MEDS ORDERED: OXYCODONE HCL5 MG PO (11:43)
[2019-07-15] MEDS ORDERED: NATURE'S BLEND F1 MG PO (11:43)
== END 2019-05-18 16:17 | disposition home or self-care (01) | DRG 602 ==
LOC: ED 20:23 → EDHOLD 23:53 → 4E 23:53
PROVIDERS: Emergency Medicine Emergency Medical Services; Internal Medicine; ADMIT Internal Medicine
DX: L03.115 Cellulitis of right lower limb (principal); E43 Unspecified severe protein-calorie malnutrition; E87.2 Acidosis; I50.22 Chronic systolic (congestive) heart failure; D68.59 Other primary thrombophilia; J98.11 Atelectasis; F10.929 Alcohol use, unspecified with intoxication, unspecified; E87.8 Other disorders of electrolyte and fluid balance, not elsewhere classified; R26.2 Difficulty in walking, not elsewhere classified; D69.6 Thrombocytopenia, unspecified; D72.810 Lymphocytopenia; E83.42 Hypomagnesemia; R74.0 Nonspecific elevation of levels of transaminase and lactic acid dehydrogenase [LDH]; R74.8 Abnormal levels of other serum enzymes; Z96.651 Presence of right artificial knee joint; D53.9 Nutritional anemia, unspecified; E53.8 Deficiency of other specified B group vitamins; N32.89 Other specified disorders of bladder; G89.29 Other chronic pain; E66.3 Overweight; F17.210 Nicotine dependence, cigarettes, uncomplicated; E66.9 Obesity, unspecified; E11.40 Type 2 diabetes mellitus with diabetic neuropathy, unspecified; J44.9 Chronic obstructive pulmonary disease, unspecified; I48.2 Chronic atrial fibrillation; B18.2 Chronic viral hepatitis C; K21.9 Gastro-esophageal reflux disease without esophagitis; K74.69 Other cirrhosis of liver; I11.0 Hypertensive heart disease with heart failure; Z71.6 Tobacco abuse counseling; Z86.718 Personal history of other venous thrombosis and embolism; Z91.81 History of falling; Z87.440 Personal history of urinary (tract) infections; Z90.49 Acquired absence of other specified parts of digestive tract; Z98.51 Tubal ligation status; Z82.49 Family history of ischemic heart disease and other diseases of the circulatory system; Z82.3 Family history of stroke; Z83.3 Family history of diabetes mellitus; Z79.899 Other long term (current) drug therapy; Z68.26 Body mass index [BMI] 26.0-26.9, adult

== ENCOUNTER 2019-11-07 18:31 | Emergency (ER) | payer OTHER ==
[~2019-11-07] VITALS: Wt 79.8 kg
[~2019-11-07 18:31] MED LIST changes: +LOPRESSOR25 MG PO; +MUCINEX ER600 MG PO; +NEURONTIN800 MG PO; +VANCOMYCIN HCL125 MG PO; +VITAMIN B-1100 M1 PO
[2019-11-07 20:02] LABS: HEMATOCRIT 29.4 % (37.0-47.0); HEMOGLOBIN 10.1 g/dl (12.0-16.0); MEAN CELL VOLUME 102.1 fl (81.0-99.0); MEAN CORPUSCULAR HGB 35.1 pg (27.0-31.0); MEAN CORPUSCULAR HGB CONC 34.4 g/dl (33.0-37.0); MEAN PLATELET VOLUME 11.5 fl (9.6-12.3); NUCLEATED RED BLOOD CELL 0.1 % (0.0-0.0); PLATELET COUNT AUTOMATED 104 10*3/uL (130-400); RED BLOOD COUNT 2.88 10*6/uL (4.10-5.10); RED CELL DISTRI WIDTH 14.1 % (0-14.5); WHITE BLOOD COUNT 18.2 10*3/uL (4.8-10.8)
[2019-11-07 20:19] LABS: ALBUMIN 1.5 gm/dl (3.1-4.5); BUN 26 mg/dl (7-24); CHLORIDE 88 mmol/L (98-107); CREATININE 3.34 mg/dL (0.55-1.02); POTASSIUM 4.4 mmol/L (3.5-5.1); SGOT/AST 76 IU/L (3-35); SGPT/ALT 20 U/L (12-78); TOTAL PROTEIN 5.3 gm/dL (6.4-8.2)
[2019-11-07 20:24] LABS: ALKALINE PHOSPHATASE 216 U/L (45-117); SODIUM 119 mmol/L (136-145); TROPONIN I < 0.015 ng/ml (<0.045)
[2019-11-07 20:27] LABS: PLATELET SUFFICIENCY NORMAL (NORMAL); TOTAL CELLS COUNTED 100 #CELLS; VACUOLATION OF NEUTROPHILS MODERATE
[2019-11-07 20:30] LABS: INTERNATIONAL NORM RATIO 4.7 (2.0-3.5)
[2019-11-07 20:56] LABS: BILIRUBIN 2+ (NEGATIVE); BLOOD NEGATIVE (NEGATIVE); CLARITY CLEAR (CLEAR); COLOR BROWN (YELLOW); GLUCOSE NEGATIVE (NEGATIVE); KETONE NEGATIVE (NEGATIVE); LEUKO ESTERASE 2+ (NEGATIVE); NITRITE POSITIVE (NEGATIVE); PH 6.5 (5.0-9.0); SPECIFIC GRAVITY <= 1.005 (1.005-1.030)
[2019-11-07 21:02] LABS: BACTERIA 4+; EPITHELIAL CELLS 0-2; RBC 0-2 rbc/hpf (0-2)
[2019-11-08 00:15] VITALS: BP 78/41
--- NOTE | 2019-11-09 07:36 | NUR ---
ERNIE received voice message from Larissa Rodriguez Journeyman Lineman, asking if the patient has visited this ER due to "3 black colored toes". ERNIE returned call to confidential voicemail [phone], and explained the patient was transferred to [facility]. -ERNIE Smith
== END 2019-11-08 00:51 | disposition short-term general hospital (02) ==
LOC: ED 18:31
PROVIDERS: Emergency Medicine
DX: N17.9 Acute kidney failure, unspecified (principal); A41.9 Sepsis, unspecified organism; I73.9 Peripheral vascular disease, unspecified; D68.9 Coagulation defect, unspecified; R74.0 Nonspecific elevation of levels of transaminase and lactic acid dehydrogenase [LDH]; E87.1 Hypo-osmolality and hyponatremia; E80.6 Other disorders of bilirubin metabolism; F17.200 Nicotine dependence, unspecified, uncomplicated; I48.91 Unspecified atrial fibrillation; G89.29 Other chronic pain; K21.9 Gastro-esophageal reflux disease without esophagitis; I11.0 Hypertensive heart disease with heart failure; I50.9 Heart failure, unspecified; Z86.718 Personal history of other venous thrombosis and embolism; Z98.890 Other specified postprocedural states; Z79.899 Other long term (current) drug therapy